=== PATIENT | male | born 1980 | race Hispanic/Latino ===

== ENCOUNTER 2017-11-17 20:36 | Emergency (ER) | payer SELFPAY ==
--- NOTE | 2017-11-17 21:12 | ER ---
Nurse's Notes [facility] Name: Abram Cuellar Age: 37 yrs Sex: Male : 1980 Arrival Date: 11/17/2017 Time: 20:38 Bed 13 Private MD: Diagnosis: Diarrhea, unspecified;Vomiting;Nasal congestion Presentation: 11/17 20:49 Presenting complaint: Patient states: "trouble breathing through my nostril's" X 3 ak1 days. pt denies cough, congestion. pt c/o diarrhea started today. pt stated he vomited once today. Transition of care: patient was not received from another setting of care. Onset of symptoms is unknown. Risk Assessment: Do you want to hurt yourself or someone else? Patient reports no desire to harm self or others. Initial Sepsis Screen: Does the patient meet any 2 criteria? No. Patient's initial sepsis screen is negative. Does the patient have a suspected source of infection? No. Patient's initial sepsis screen is negative. Care prior to arrival: None. 20:49 Method Of Arrival: Ambulatory ak1 20:49 Acuity: DUYEN 3 ak1 Triage Assessment: 20:51 General: Appears in no apparent distress. Behavior is calm, cooperative. Pain: Denies ak1 pain. EENT:. EENT: Reports nasal congestion. Neuro: Level of Consciousness is awake, alert, obeys commands, Oriented to person, place, time, situation, Finance Clerk are equal bilaterally Moves all extremities. Gait is steady, Speech is normal, Facial symmetry appears normal, Pupils are PERRLA. Cardiovascular: No deficits noted. Respiratory: No deficits noted. GI: Reports diarrhea, vomiting. : No signs and/or symptoms were reported regarding the genitourinary system. Derm: No signs and/or symptoms reported regarding the dermatologic system. Musculoskeletal: No signs and/or symptoms reported regarding the musculoskeletal system. Historical: - Allergies: 20:51 No Known Allergies; ak1 - Home Meds: 20:51 None [Active]; ak1 - PMHx: 20:51 None; ak1 - PSHx: 20:51 Appendectomy; Hernia repair; ak1 - Immunization history:: Adult Immunizations unknown. - Social history:: Smoking status: Patient uses tobacco products, smokes one-half pack cigarettes per day. - Ebola Screening: : No symptoms or risks identified at this time. Screenin:52 Abuse screen: Denies threats or abuse. Denies injuries from another. Nutritional ak1 screening: No deficits noted. Tuberculosis screening: No symptoms or risk factors identified. Fall Risk None identified. Assessment: 21:13 General: Appears in no apparent distress. uncomfortable, Behavior is calm, cooperative, bs1 appropriate for age. Pain: Denies pain. Neuro: Level of Consciousness is awake, alert, obeys commands, Oriented to person, place, time, situation, Appropriate for age. Cardiovascular: Denies chest pain, Heart tones S1 S2 present Capillary refill < 3 seconds Patient's skin is warm and dry. Respiratory: Airway is patent Trachea midline Respiratory effort is even, unlabored, Respiratory pattern is regular, symmetrical, Breath sounds are clear bilaterally. Respiratory: Reports "Hard to take a deep breath.". GI: No signs and/or symptoms were reported involving the gastrointestinal system. : No signs and/or symptoms were reported regarding the genitourinary system. EENT: Nares on right inflammation noted to right nare. Derm: Skin is intact, Skin is pink, warm \\T\\ dry. normal. Musculoskeletal: Circulation, motion, and sensation intact. Capillary refill < 3 seconds, Range of motion: intact in all extremities. Vital Signs: 20:50 BP 152 / 96; Pulse 71; Resp 20; Temp 98.1; Pulse Ox 99% on R/A; Weight 90.72 kg (R); ak1 Height 5 ft. 8 in. (172.72 cm) (R); Pain 0/10; 21:20 BP 131 / 85; Pulse 87; Resp 16; Temp 98; Pulse Ox 100% on R/A; Pain 0/10; bs1 20:50 Body Mass Index 30.41 (90.72 kg, 172.72 cm) ak1 ED Course: 20:38 Patient arrived in ED. es 20:50 Triage completed. ak1 20:52 Patient has correct armband on for positive identification. Bed in low position. Call ak1 light in reach. Side rails up X 1. 20:52 Arm band placed on Patient placed in an exam room, on a stretcher, Patient notified of ak1 wait time. 20:58 Ja Connolly NP is PHCP. pm1 20:58 Josef Bingham MD is Attending Physician. pm1 21:12 Mariaelena Wakefield, RN is Primary Nurse. bs1 21:14 No provider procedures requiring assistance completed. Patient did not have IV access bs1 during this emergency room visit. Administered Medications: No medications were administered Outcome: 21:11 Discharge ordered by . pm1 21:27 Discharged to home ambulatory. bs1 21:27 Condition: stable 21:27 Discharge instructions given to patient, Instructed on discharge instructions, follow up and referral plans. medication usage, Demonstrated understanding of instructions, follow-up care, medications, Prescriptions given X 2. 21:28 Patient left the ED. bs1 Signatures: Marli Tilley Amber RN RN ak1 Ja Connolly, ALETHA BOBBIN HAULER pm1 Mariaelena Wakefield, COREY RN bs1
--- NOTE | 2017-11-17 21:12 | EDPHYS ---
Physician Documentation [facility] Name: Abram Cuellar Age: 37 yrs Sex: Male : 1980 Arrival Date: 11/17/2017 Time: 20:38 Bed 13 Private MD: ED Physician Josef Bingham HPI: 11/17 21:10 This 37 yrs old Male presents to ER via Ambulatory with complaints of pm1 Breathing Difficulty from right nostril. 21:10 The patient presents with unable to breath easily from right nostril. Onset: The pm1 symptoms/episode began/occurred 3 day(s) ago. Modifying factors: The symptoms are alleviated by nothing. the symptoms are aggravated by nothing. Associated signs and symptoms: Pertinent positives: anxiety over inability to breath from right nostril. Severity of symptoms: in the emergency department the symptoms are unchanged. The patient has not experienced similar symptoms in the past. Patient went to [facility] for lunch and 1 hour after eating he had 1 episode of diarrhea and 1 episode of vomiting. No fever or abdominal pain. Historical: - Allergies: 20:51 No Known Allergies; ak1 - Home Meds: 20:51 None [Active]; ak1 - PMHx: 20:51 None; ak1 - PSHx: 20:51 Appendectomy; Hernia repair; ak1 - Immunization history:: Adult Immunizations unknown. - Social history:: Smoking status: Patient uses tobacco products, smokes one-half pack cigarettes per day. - Ebola Screening: : No symptoms or risks identified at this time. ROS: 21:10 Constitutional: Negative for fever, chills, and weight loss, Eyes: Negative for injury, pm1 pain, redness, and discharge. 21:10 Neck: Negative for injury, pain, and swelling, Cardiovascular: Negative for chest pain, palpitations, and edema, Respiratory: Negative for shortness of breath, cough, wheezing, and pleuritic chest pain. 21:10 Back: Negative for injury and pain, : Negative for injury, bleeding, discharge, and swelling, MS/Extremity: Negative for injury and deformity, Skin: Negative for injury, rash, and discoloration, Neuro: Negative for headache, weakness, numbness, tingling, and seizure. 21:10 ENT: Positive for difficulty breathing through right nostril , Negative for ear pain, sinus congestion, sinus pain, sore throat. 21:10 Abdomen/GI: Positive for vomiting, diarrhea, Negative for abdominal pain. Exam: 21:10 Constitutional: This is a well developed, well nourished patient who is awake, alert, pm1 and in no acute distress. Head/Face: Normocephalic, atraumatic. Eyes: Pupils equal round and reactive to light, extra-ocular motions intact. Lids and lashes normal. Conjunctiva and sclera are non-icteric and not injected. Cornea within normal limits. Periorbital areas with no swelling, redness, or edema. 21:10 Neck: Trachea midline, no thyromegaly or masses palpated, and no cervical lymphadenopathy. Supple, full range of motion without nuchal rigidity, or vertebral point tenderness. No Meningismus. Chest/axilla: Normal chest wall appearance and motion. Nontender with no deformity. No lesions are appreciated. Cardiovascular: Regular rate and rhythm with a normal S1 and S2. No gallops, murmurs, or rubs. Normal PMI, no JVD. No pulse deficits. Respiratory: Lungs have equal breath sounds bilaterally, clear to auscultation and percussion. No rales, rhonchi or wheezes noted. No increased work of breathing, no retractions or nasal flaring. Abdomen/GI: Soft, non-tender, with normal bowel sounds. No distension or tympany. No guarding or rebound. No evidence of tenderness throughout. Back: No spinal tenderness. No costovertebral tenderness. Full range of motion. Skin: Warm, dry with normal turgor. Normal color with no rashes, no lesions, and no evidence of cellulitis. MS/ Extremity: Pulses equal, no cyanosis. Neurovascular intact. Full, normal range of motion. 21:10 ENT: External ear(s): are unremarkable, Ear canal(s): are normal, TM's: are normal, Nose: Nasal mucosa: Edematous right nostril, Examination of the other nostril shows no obvious abnormality, Mouth: is normal, Posterior pharynx: is normal, no acute changes. 21:10 Neuro: Orientation: is normal, Motor: moves all fours. Vital Signs: 20:50 BP 152 / 96; Pulse 71; Resp 20; Temp 98.1; Pulse Ox 99% on R/A; Weight 90.72 kg (R); ak1 Height 5 ft. 8 in. (172.72 cm) (R); Pain 0/10; 21:20 BP 131 / 85; Pulse 87; Resp 16; Temp 98; Pulse Ox 100% on R/A; Pain 0/10; bs1 20:50 Body Mass Index 30.41 (90.72 kg, 172.72 cm) ak1 MDM: 20:58 Patient medically screened. pm1 21:10 Data reviewed: vital signs. Data interpreted: Pulse oximetry: on room air is 99 %. pm1 Interpretation: normal. Counseling: I had a detailed discussion with the patient and/or guardian regarding: the historical points, exam findings, and any diagnostic results supporting the discharge/admit diagnosis, the need for outpatient follow up, to return to the emergency department if symptoms worsen or persist or if there are any questions or concerns that arise at home. Administered Medications: No medications were administered Disposition: 11/18 07:16 Co-signature as Attending Physician, Josef Bingham MD. Disposition: 11/17/17 21:11 Discharged to Home. Impression: Nasal congestion, Diarrhea, unspecified, Vomiting. - Condition is Stable. - Discharge Instructions: Food Choices to Help Relieve Diarrhea, Adult, Diarrhea, Adult, Food Poisoning, Nasal Allergies, Nausea and Vomiting, Adult. - Prescriptions for Flonase Allergy Relief 50 mcg/actuation Nasal spray,suspension - inhale 2 spray by INTRANASAL route once daily; 1 bottle. promethazine 25 mg Oral Tablet - take 1 tablet by ORAL route every 6 hours As needed; 20 tablet. - Medication Reconciliation Form, Thank You Letter form. - Follow up: Emergency Department; When: As needed; Reason: Worsening of condition. Follow up: Private Physician; When: 2 - 3 days; Reason: Recheck today's complaints, Continuance of care, Re-evaluation by your physician. - Problem is new. - Symptoms have improved. Signatures: Lissett Donis, RN RN ak1 Ja Connolly, ADVANCED MANUFACTURING CONSULTANT ADVANCED MANUFACTURING CONSULTANT pm1 Josef Bingham MD MD Mariaelena Wakefield RN RN bs1 Corrections: (The following items were deleted from the chart) 11/17 21:28 21:11 11/17/2017 21:11 Discharged to Home. Impression: Nasal congestionDiarrhea, bs1 unspecified; Vomiting. Condition is Stable. Forms are Medication Reconciliation Form, Thank You Letter, Antibiotic Education, Prescription Opioid Use. Follow up: Emergency Department; When: As needed; Reason: Worsening of condition. Follow up: Private Physician; When: 2 - 3 days; Reason: Recheck today's complaints, Continuance of care, Re-evaluation by your physician. Problem is new. Symptoms have improved. pm1
[2017-11-17 21:38] VITALS: BP 131/85; TEMP 98; O2SAT 100
== END 2017-11-17 21:28 | disposition home or self-care (01) ==
LOC: ER 20:36
DX: R09.81 Nasal congestion (principal); R19.7 Diarrhea, unspecified; R11.10 Vomiting, unspecified
CPT/HCPCS: 99282

== ENCOUNTER 2017-11-19 15:46 | Emergency (ER) | payer SELFPAY ==
--- NOTE | 2017-11-19 17:00 | ER ---
Nurse's Notes [facility] Name: Abram Cuellar Age: 37 yrs Sex: Male : 1980 Arrival Date: 11/19/2017 Time: 15:49 Bed Waiting Private MD: None, None Diagnosis: Presentation: 11/19 15:50 Presenting complaint: Patient states: was seen here a few days ago and was sent home sv with new prescriptions and he wants to know if he is supposed to keep taking the nausea medicine all the time or as needed. He also wants to follow up on his nostrils and his diarrhea. Transition of care: patient was not received from another setting of care. Onset of symptoms is unknown. Care prior to arrival: None. 15:50 Method Of Arrival: Ambulatory sv 15:50 Acuity: DUYEN 4 sv Historical: - Allergies: 15:52 No Known Allergies; sv - PSHx: 15:52 Appendectomy; Hernia repair; sv - Immunization history:: Adult Immunizations up to date. - Social history:: Smoking status: Patient/guardian denies using tobacco. - Ebola Screening: : No symptoms or risks identified at this time. Vital Signs: 15:52 BP 146 / 104; Pulse 60; Resp 16; Temp 97.4; Pulse Ox 98% ; Weight 95.25 kg; Height 5 sv ft. 8 in. (172.72 cm); Pain 0/10; 15:52 Body Mass Index 31.93 (95.25 kg, 172.72 cm) sv ED Course: 15:49 Patient arrived in ED. mr 15:49 None, None is Private Physician. mr 15:52 Triage completed. sv 15:53 Arm band placed on right wrist. sv Administered Medications: No medications were administered Outcome: 16:59 Patient left the ED. sv Signatures: Elyssa Mcconnell RN RN Hailee Baker Corrections: (The following items were deleted from the chart) 15:53 15:52 BP 146 / 104; Pulse 60bpm; Resp 16bpm; Pulse Ox 98%; 95.25 kg; Height 5 ft. 8 sv in.; BMI: 31.9; Pain 0/10; sv
[2017-11-19 17:06] VITALS: BP 146/104; TEMP 97.4; O2SAT 98
== END 2017-11-19 16:59 | disposition left against medical advice (07) ==
LOC: ER 15:46
DX: Z53.21 Procedure and treatment not carried out due to patient leaving prior to being seen by health care provider (principal)
CPT/HCPCS: 99281

== ENCOUNTER 2017-11-27 16:40 | Emergency (ER) | payer SELFPAY ==
--- NOTE | 2017-11-27 18:35 | ER ---
Nurse's Notes [facility] Name: Abram Cuellar Age: 37 yrs Sex: Male : 1980 Arrival Date: 11/27/2017 Time: 16:44 Bed 20 Private MD: None, None Diagnosis: Diarrhea, unspecified;Nasal congestion Presentation: 11/27 16:51 Presenting complaint: Patient states: nasal congestion and isn't able to breathe sv properly. Diarrhea x 6 times today. Transition of care: patient was not received from another setting of care. Onset of symptoms was November 27, 2017. Care prior to arrival: None. 16:51 Method Of Arrival: Ambulatory sv 16:51 Acuity: DUYEN 3 sv 19:02 Risk Assessment: Do you want to hurt yourself or someone else? Patient reports no aj1 desire to harm self or others. Initial Sepsis Screen: Does the patient meet any 2 criteria? No. Patient's initial sepsis screen is negative. Does the patient have a suspected source of infection? No. Patient's initial sepsis screen is negative. Historical: - Allergies: 16:52 No Known Allergies; sv - Home Meds: 16:52 None [Active]; sv - PSHx: 16:52 Appendectomy; Hernia repair; sv - Immunization history:: Adult Immunizations up to date. - Social history:: Smoking status: Patient/guardian denies using tobacco. - Ebola Screening: : No symptoms or risks identified at this time. Screenin:08 Abuse screen: Denies threats or abuse. Denies injuries from another. Nutritional aj1 screening: No deficits noted. Tuberculosis screening: No symptoms or risk factors identified. 19:03 Fall Risk None identified. aj1 Assessment: 18:08 General: Appears in no apparent distress. comfortable, Behavior is calm, cooperative, aj1 appropriate for age. Pain: Denies pain. Neuro: Level of Consciousness is awake, alert, obeys commands, Oriented to person, place, time, situation. Cardiovascular: Patient's skin is warm and dry. Respiratory: Airway is patent Respiratory effort is even, unlabored, Respiratory pattern is regular, symmetrical. GI: Abdomen is flat, non-distended, Reports diarrhea, nausea. : No signs and/or symptoms were reported regarding the genitourinary system. EENT: Reports nasal congestion in the right nostril. Derm: No signs and/or symptoms reported regarding the dermatologic system. Skin is pink, warm \T\ dry. normal. Musculoskeletal: No signs and/or symptoms reported regarding the musculoskeletal system. Circulation, motion, and sensation intact. 19:01 Reassessment: Patient appears in no apparent distress at this time. No changes from aj1 previously documented assessment. Patient and/or family updated on plan of care and expected duration. Pain level reassessed. Patient is alert, oriented x 3, equal unlabored respirations, skin warm/dry/pink. Vital Signs: 16:52 BP 136 / 93; Pulse 58; Resp 18; Temp 97.4; Pulse Ox 99% ; Weight 94.8 kg; Height 5 ft. sv 8 in. (172.72 cm); Pain 4/10; 16:52 Body Mass Index 31.78 (94.80 kg, 172.72 cm) sv ED Course: 16:44 Patient arrived in ED. sb2 16:44 None, None is Private Physician. sb2 16:52 Triage completed. sv 16:53 Arm band placed on right wrist. sv 17:40 Ania Vinson, RN is Primary Nurse. aj1 17:46 Alexandra Chicas, PEDRO is PHCP. snw 17:46 Jay Selby MD is Attending Physician. snw 18:08 Patient has correct armband on for positive identification. Bed in low position. Call aj1 light in reach. Side rails up X 1. 18:08 No provider procedures requiring assistance completed. aj1 19:02 Patient did not have IV access during this emergency room visit. aj1 Administered Medications: No medications were administered Outcome: 18:35 Discharge ordered by . snw 19:03 Discharged to home ambulatory. aj1 19:03 Condition: good 19:03 Discharge instructions given to patient, Instructed on discharge instructions, follow up and referral plans. Demonstrated understanding of instructions, follow-up care. 19:03 Patient left the ED. aj1 Signatures: Ania Vinson RN RN ajElyssa Marin RN RN sv Alexandra Chicas FNP-C FINAL ARMATURE TESTER-Csnw Tessy Leavitt sb2
--- NOTE | 2017-11-27 18:35 | EDPHYS ---
Physician Documentation [facility] Name: Abram Cuellar Age: 37 yrs Sex: Male : 1980 Arrival Date: 11/27/2017 Time: 16:44 Bed 20 Private MD: None, None ED Physician Jay Selby HPI: 11/27 18:39 This 37 yrs old Male presents to ER via Ambulatory with complaints of snw Diarrhea, Nasal Congestion. 18:39 The patient presents to the emergency department with nausea, diarrhea. Onset: The snw symptoms/episode began/occurred 1 week(s) ago, waxing and waning. Possible causes: dietary changes and recent "food poisoning", pt to ED three times in the past week for the same. The symptoms are aggravated by nothing. Associated signs and symptoms: The patient has no apparent associated signs or symptoms, Pertinent negatives: anorexia, dysuria, fever, GI bleeding. Severity of symptoms: At their worst the symptoms were mild. The patient has experienced similar episodes in the past. as noted. Historical: - Allergies: 16:52 No Known Allergies; sv - Home Meds: 16:52 None [Active]; sv - PSHx: 16:52 Appendectomy; Hernia repair; sv - Immunization history:: Adult Immunizations up to date. - Social history:: Smoking status: Patient/guardian denies using tobacco. - Ebola Screening: : No symptoms or risks identified at this time. ROS: 18:42 Constitutional: Negative for fever, chills, and weight loss, Eyes: Negative for injury, snw pain, redness, and discharge. 18:42 Neck: Negative for injury, pain, and swelling, Cardiovascular: Negative for chest pain, palpitations, and edema, Respiratory: Negative for shortness of breath, cough, wheezing, and pleuritic chest pain, Back: Negative for injury and pain, : Negative for injury, bleeding, discharge, and swelling, MS/Extremity: Negative for injury and deformity, Skin: Negative for injury, rash, and discoloration, Neuro: Negative for headache, weakness, numbness, tingling, and seizure. 18:42 ENT: Positive for right nasal congestion. 18:42 Abdomen/GI: Positive for diarrhea, Negative for abdominal pain, nausea and vomiting, abdominal cramps, abdominal distension, anorexia, black/tarry stool, bowel incontinence. Exam: 18:38 Constitutional: This is a well developed, well nourished patient who is awake, alert, snw and in no acute distress. Head/Face: Normocephalic, atraumatic. Eyes: Pupils equal round and reactive to light, extra-ocular motions intact. Lids and lashes normal. Conjunctiva and sclera are non-icteric and not injected. Cornea within normal limits. Periorbital areas with no swelling, redness, or edema. ENT: Nares patent. No nasal discharge, no septal abnormalities noted. Tympanic membranes are normal and external auditory canals are clear. Oropharynx with no redness, swelling, or masses, exudates, or evidence of obstruction, uvula midline. Mucous membranes moist. Neck: Trachea midline, no thyromegaly or masses palpated, and no cervical lymphadenopathy. Supple, full range of motion without nuchal rigidity, or vertebral point tenderness. No Meningismus. Chest/axilla: Normal chest wall appearance and motion. Nontender with no deformity. No lesions are appreciated. Cardiovascular: Regular rate and rhythm with a normal S1 and S2. No gallops, murmurs, or rubs. Normal PMI, no JVD. No pulse deficits. Respiratory: Lungs have equal breath sounds bilaterally, clear to auscultation and percussion. No rales, rhonchi or wheezes noted. No increased work of breathing, no retractions or nasal flaring. Abdomen/GI: Soft, non-tender, with normal bowel sounds. No distension or tympany. No guarding or rebound. No evidence of tenderness throughout. Back: No spinal tenderness. No costovertebral tenderness. Full range of motion. Skin: Warm, dry with normal turgor. Normal color with no rashes, no lesions, and no evidence of cellulitis. MS/ Extremity: Pulses equal, no cyanosis. Neurovascular intact. Full, normal range of motion. Neuro: Awake and alert, GCS 15, oriented to person, place, time, and situation. Cranial nerves II-XII grossly intact. Motor strength 5/5 in all extremities. Sensory grossly intact. Cerebellar exam normal. Normal gait. 18:38 Psych: Behavior/mood is anxious. Vital Signs: 16:52 BP 136 / 93; Pulse 58; Resp 18; Temp 97.4; Pulse Ox 99% ; Weight 94.8 kg; Height 5 ft. sv 8 in. (172.72 cm); Pain 4/10; 16:52 Body Mass Index 31.78 (94.80 kg, 172.72 cm) sv MDM: 17:46 Patient medically screened. snw 18:41 Data reviewed: vital signs, nurses notes. Data interpreted: Pulse oximetry: on room air snw is 99 %. Interpretation: normal. Counseling: I had a detailed discussion with the patient and/or guardian regarding: the historical points, exam findings, and any diagnostic results supporting the discharge/admit diagnosis, the presence of at least one elevated blood pressure reading (>120/80) during this emergency department visit, the need for outpatient follow up, to return to the emergency department if symptoms worsen or persist or if there are any questions or concerns that arise at home. Special discussion: I have referred the patient to see his PCP for further evaluation of high blood pressure. Based on the history and exam findings, there is no indication for further emergent testing or inpatient evaluation. I discussed with the patient/guardian the need to see the ENT specialist for further evaluation of the symptoms. I discussed with the patient/guardian the need to see the primary care provider for further evaluation of the symptoms. Medical screen evaluation completed. [facility] emergency medical condition absent. Administered Medications: No medications were administered Disposition: 11/28 10:39 Co-signature as Attending Physician, Jay Selby MD I agree with the assessment and kdr plan of care. Disposition: 11/27/17 18:35 Discharged to Home. Impression: Diarrhea, unspecified, Nasal congestion. - Condition is Stable. - Discharge Instructions: Food Choices to Help Relieve Diarrhea, Adult, Diarrhea, Adult, Allergies, [id number]. - Medication Reconciliation Form, Thank You Letter, Antibiotic Education, Prescription Opioid Use form. - Follow up: Emergency Department; When: As needed; Reason: Worsening of condition. Follow up: Private Physician; When: 1 week; Reason: Recheck today's complaints, Continuance of care, Re-evaluation by your physician. Signatures: Ania Vinson RN RN aj1 Elyssa Mcconnell RN RN sv Rittger, Kevin, MD MD [facility] Alexandra Chicas, BIOMEDICAL TECHNICIAN-C BIOMEDICAL TECHNICIAN-Csnw Corrections: (The following items were deleted from the chart) 08/02 19:03 18:35 11/27/2017 18:35 Discharged to Home. Impression: Diarrhea, unspecified; Nasal aj1 congestion. Condition is Stable. Forms are Medication Reconciliation Form, Thank You Letter, Antibiotic Education, Prescription Opioid Use. Follow up: Emergency Department; When: As needed; Reason: Worsening of condition. Follow up: Private Physician; When: 1 week; Reason: Recheck today's complaints, Continuance of care, Re-evaluation by your physician. snw
[2017-11-27 19:07] VITALS: BP 136/93; TEMP 97.4; O2SAT 99
== END 2017-11-27 19:03 | disposition home or self-care (01) ==
LOC: ER 16:40
DX: R19.7 Diarrhea, unspecified (principal); R09.81 Nasal congestion
CPT/HCPCS: 99281

== ENCOUNTER 2017-12-01 14:51 | Emergency (ER) | payer SELFPAY ==
--- NOTE | 2017-12-01 16:27 | RAD REPORT ---
EXAM DESCRIPTION: US - Abdomen Exam Limited - 12/01/2017 4:16 pm CLINICAL HISTORY: RUQ;Abd pain COMPARISON: No comparisons FINDINGS: The gallbladder demonstrates no gallstones. No pericholecystic fluid or gallbladder wall t hickening. The common bile duct is normal measuring 4 mm. The liver demonstrates no findings of intrahepatic biliary dilatation. IMPRESSION: Unremarkable examination.
[2017-12-01 17:07] LABS: Absolute Lymphocytes (CBC) 2.7 K/uL (0.7-4.9); Absolute Monocytes 0.6 K/uL (0.1-1.3); Absolute Neutrophil 2.4 K/uL (1.8-8.0); Basophils % 0.5 % (0-1.3); Eosinophils % 1.2 % (0-4.4); Hematocrit 41.7 % (39.6-49.0); Lymphocytes % 46.1 % (15.3-44.8); MCH 33.2 pg (27.0-35.0); MPV 10.2 fL (7.6-11.3); Monocytes % 10.6 % (3.3-12.3); RBC Red Blood Cell Count 4.35 M/uL (4.33-5.43)
[2017-12-01 17:24] LABS: Potassium 4.1 mmol/L (3.5-5.1)
--- NOTE | 2017-12-01 17:24 | RAD REPORT ---
[facility]: nasal septum swelling Facial pain and swelling. COMPARISON: No comparisons TECHNIQUE: Axial 2 mm thick images of the face were obtained with sagittal and coronal reconstructio n images. All CT scans are performed using dose optimization technique as appropriate and may include automated exposure control or mA/KV adjustment according to patient size. FINDINGS: No acute facial bone fracture is seen.The mandible is intact. The globes and orbital contents are grossly unremarkable. The nasal septum anteriorly is thickened to 8 mm. Prominent right-sided sarai bullosa is seen. 8 mm Felecia cell is noted on the left. A soft tissue le pratik is seen in the right superior maxillary sinus posterior to the maxillary sinus ostium. This vasyl ures 15 x 14 mm and has the appearance of a mucocele, perhaps within a right-sided Felecia cell. Moder ate mass effect on the right ostiomeatal unit is seen. Small 6 mm mucous retention cyst versus polyp is seen inferior left maxillary antrum. IMPRESSION: Moderate diffuse thickening of the nasal septum anteriorly measuring up to 8 mm. Paranasal sinus abnormalities, greater on the right, as detailed.
--- NOTE | 2017-12-01 18:00 | ER ---
Nurse's Notes [facility] Name: Abram Cuellar Age: 37 yrs Sex: Male : 1980 Arrival Date: 12/01/2017 Time: 14:53 Bed 19 Private MD: Diagnosis: Abdominal and pelvic pain;Diarrhea, unspecified;Right anterior nasal spetum swelling Presentation: 12/01 14:54 Presenting complaint: Patient states: right side abd pain and diarrhea since before sv 11/17/17 and nasal congestion and occasional nose bleeds. Transition of care: patient was not received from another setting of care. Onset of symptoms was October 2017. Care prior to arrival: None. 14:54 Method Of Arrival: Ambulatory sv 14:54 Acuity: DUYEN 3 sv Historical: - Allergies: 14:54 No Known Allergies; sv - PSHx: 14:54 Appendectomy; Hernia repair; sv - Immunization history:: Adult Immunizations up to date. - Ebola Screening: : No symptoms or risks identified at this time. - Social history:: Smoking status: Patient/guardian denies using tobacco. Screenin:36 Abuse screen: Denies threats or abuse. Denies injuries from another. Nutritional aj screening: No deficits noted. Tuberculosis screening: No symptoms or risk factors identified. Fall Risk None identified. Assessment: 15:36 General: Appears in no apparent distress. comfortable, Behavior is calm, cooperative, aj appropriate for age. Pain: Complains of pain in right upper quadrant. Neuro: Level of Consciousness is awake, alert, obeys commands, Oriented to person, place, time, situation, Appropriate for age. Respiratory: Airway is patent Respiratory effort is even, unlabored, Respiratory pattern is regular, symmetrical. GI: Reports upper abdominal pain, diarrhea. Derm: Skin is intact, is healthy with good turgor, Skin is pink, warm \T\ dry. normal. 18:19 Reassessment: Patient appears in no apparent distress at this time. No changes from aj previously documented assessment. Patient and/or family updated on plan of care and expected duration. Pain level reassessed. Patient is alert, oriented x 3, equal unlabored respirations, skin warm/dry/pink. Vital Signs: 14:56 BP 124 / 91; Pulse 64; Resp 18; Temp 97.8; Pulse Ox 100% ; Weight 94.8 kg; Height 5 ft. sv 8 in. (172.72 cm); Pain 0/10; 15:36 BP 120 / 92; Pulse 65; Resp 20; Pulse Ox 97% on R/A; aj 16:50 BP 127 / 89; Pulse 66; Resp 17; Pulse Ox 98% on R/A; mh5 17:45 BP 122 / 83; Pulse 58; Resp 17; Pulse Ox 98% on R/A; mh5 14:56 Body Mass Index 31.78 (94.80 kg, 172.72 cm) sv ED Course: 14:53 Patient arrived in ED. sv 14:54 Arm band placed on right wrist. sv 14:54 Patient placed in an exam room, on a stretcher. sv 14:56 Triage completed. sv 14:58 Wen Avelar, RN is Primary Nurse. aj 15:36 Patient has correct armband on for positive identification. aj 15:42 Jay Selby MD is Attending Physician. kdr 16:06 Radiology exam delayed due to lab results not completed at this time. (BUN/Creatinine). jj2 16:07 Patient taken to ultrasound. via wheelchair. hr 16:15 US Abdomen Limited In Process Unspecified. EDMS 16:21 Ultrasound completed. Patient tolerated well. hr 16:34 Radiology exam delayed due to lab results not completed at this time. (BUN/Creatinine) jj2 IV insertion attempt and/or patient not having appropriate IV at this time. 16:49 Missed attempt(s): 20 gauge in right forearm. antecubital area. mh5 16:54 Inserted saline lock: 22 gauge in left antecubital area, using aseptic technique. Blood aj collected. 17:11 CT Facial Bones W/ Con \T\ Mpr In Process Unspecified. EDMS 18:21 No provider procedures requiring assistance completed. IV discontinued, intact, aj bleeding controlled, No redness/swelling at site. Pressure dressing applied. Administered Medications: 18:07 Drug: Flagyl 500 mg Route: PO; aj 18:25 Follow up: Response: No adverse reaction aj 18:07 Drug: Cipro 500 mg Route: PO; aj 18:24 Follow up: Response: No adverse reaction aj 18:07 Drug: Bentyl 20 mg Route: PO; aj 18:24 Follow up: Response: No adverse reaction aj 18:08 Drug: LoMOTIL 2 tabs Route: PO; aj 18:25 Follow up: Response: No adverse reaction aj Outcome: 17:59 Discharge ordered by . kdr 18:21 Discharged to home ambulatory. aj 18:21 Condition: good 18:21 Discharge instructions given to patient, Instructed on discharge instructions, follow up and referral plans. Demonstrated understanding of instructions, follow-up care, medications, Prescriptions given X 5 18:25 Patient left the ED. aj Signatures: Dispatcher [employer] Elyssa Hobson RN RN sv Myers, Amanda, RN RN aj Rittger, Kevin, MD MD kdr Jaramillo, Justin jj2 Greta Parker [facility] Corrections: (The following items were deleted from the chart) 14:58 14:54 Presenting complaint: Patient states: diarrhea since before 11/17/17 and nasal sv congestion and occasional nose bleeds. sv 16:34 16:21 Patient moved to [place] via wheelchair. hr jj2
--- NOTE | 2017-12-01 18:00 | EDPHYS ---
Physician Documentation [facility] Name: Abram Cuellar Age: 37 yrs Sex: Male : 1980 Arrival Date: 12/01/2017 Time: 14:53 Bed 19 Private MD: ED Physician Jay Selby HPI: 12/01 17:50 This 37 yrs old Male presents to ER via Ambulatory with complaints of kdr Diarrhea, RUQ pain and nasal septum pain. 17:50 The patient presents to the emergency department with nausea, diarrhea, that is kdr intermittent, abdominal pain, of the right upper quadrant. Onset: The symptoms/episode began/occurred gradually, 3 week(s) ago. Possible causes: unknown, bad food exposure. The symptoms are aggravated by nothing. pressure, The symptoms are alleviated by nothing. Associated signs and symptoms: Pertinent positives: abdominal pain, diarrhea, nausea, Pertinent negatives: anorexia, belching, constipation, dysuria, fever, flatulence. Severity of symptoms: At their worst the symptoms were mild in the emergency department the symptoms are unchanged. The patient has not experienced similar symptoms in the past. The patient has been recently seen at the [facility] Emergency Department, last week, for similar complaints. Historical: - Allergies: 14:54 No Known Allergies; sv - PSHx: 14:54 Appendectomy; Hernia repair; sv - Immunization history:: Adult Immunizations up to date. - Ebola Screening: : No symptoms or risks identified at this time. - Social history:: Smoking status: Patient/guardian denies using tobacco. ROS: 17:50 Constitutional: Negative for fever, chills, and weight loss, Eyes: Negative for injury, kdr pain, redness, and discharge, Neck: Negative for injury, pain, and swelling, Cardiovascular: Negative for chest pain, palpitations, and edema, Respiratory: Negative for shortness of breath, cough, wheezing, and pleuritic chest pain, Back: Negative for injury and pain, : Negative for injury, bleeding, discharge, and swelling, MS/Extremity: Negative for injury and deformity, Skin: Negative for injury, rash, and discoloration, Neuro: Negative for headache, weakness, numbness, tingling, and seizure activity. Psych: Negative for depression, anxiety, suicide ideation, homicidal ideation, and hallucinations, Allergy/Immunology: Negative for hives, rash, and allergies, Endocrine: Negative for neck swelling, polydipsia, polyuria, polyphagia, and marked weight changes, Hematologic/Lymphatic: Negative for swollen nodes, abnormal bleeding, and unusual bruising. 17:50 ENT: Positive for Anterior right nasal septum pain, Negative for 17:50 Abdomen/GI: Positive for abdominal pain, nausea, diarrhea, abdominal cramps, Negative for abdominal distension, anorexia, dysphagia, hematemesis, black/tarry stool, rectal pain, rectal bleeding, bowel incontinence, flatulence. Exam: 17:50 Constitutional: This is a well developed, well nourished patient who is awake, alert, kdr and in no acute distress. Head/Face: Normocephalic, atraumatic. Eyes: Pupils equal round and reactive to light, extra-ocular motions intact. Lids and lashes normal. Conjunctiva and sclera are non-icteric and not injected. Cornea within normal limits. Periorbital areas with no swelling, redness, or edema. Neck: Trachea midline, no thyromegaly or masses palpated, and no cervical lymphadenopathy. Supple, full range of motion without nuchal rigidity, or vertebral point tenderness. No Meningismus. Chest/axilla: Normal chest wall appearance and motion. Nontender with no deformity. No lesions are appreciated. Cardiovascular: Regular rate and rhythm with a normal S1 and S2. No gallops, murmurs, or rubs. Normal PMI, no JVD. No pulse deficits. Respiratory: Lungs have equal breath sounds bilaterally, clear to auscultation and percussion. No rales, rhonchi or wheezes noted. No increased work of breathing, no retractions or nasal flaring. Back: No spinal tenderness. No costovertebral tenderness. Full range of motion. Skin: Warm, dry with normal turgor. Normal color with no rashes, no lesions, and no evidence of cellulitis. 17:50 ENT: Nose: Slight swelling to right anterior nasal spetum. 17:50 Abdomen/GI: Inspection: abdomen appears normal, Bowel sounds: active, Palpation: soft, mild abdominal tenderness, in the right upper quadrant. Vital Signs: 14:56 BP 124 / 91; Pulse 64; Resp 18; Temp 97.8; Pulse Ox 100% ; Weight 94.8 kg; Height 5 ft. sv 8 in. (172.72 cm); Pain 0/10; 15:36 BP 120 / 92; Pulse 65; Resp 20; Pulse Ox 97% on R/A; aj 16:50 BP 127 / 89; Pulse 66; Resp 17; Pulse Ox 98% on R/A; mh5 17:45 BP 122 / 83; Pulse 58; Resp 17; Pulse Ox 98% on R/A; mh5 14:56 Body Mass Index 31.78 (94.80 kg, 172.72 cm) sv MDM: 17:50 Data reviewed: vital signs, nurses notes. Counseling: I had a detailed discussion with [facility] the patient and/or guardian regarding: the historical points, exam findings, and any diagnostic results supporting the discharge/admit diagnosis, lab results, radiology results, the need for outpatient follow up. 17:59 Patient medically screened. [facility] 12/01 16:03 Order name: CBC with Diff; Complete Time: 17:19 [facility] 12/01 16:03 Order name: Chem 7; Complete Time: 17:44 [facility] 12/01 16:03 Order name: US Abdomen Limited; Complete Time: 17:19 [facility] 12/01 16:03 Order name: CT Facial Bones W/ Con \T\ Mpr; Complete Time: 17:44 [facility] Administered Medications: 18:07 Drug: Flagyl 500 mg Route: PO; aj 18:25 Follow up: Response: No adverse reaction aj 18:07 Drug: Cipro 500 mg Route: PO; aj 18:24 Follow up: Response: No adverse reaction aj 18:07 Drug: Bentyl 20 mg Route: PO; aj 18:24 Follow up: Response: No adverse reaction aj 18:08 Drug: LoMOTIL 2 tabs Route: PO; aj 18:25 Follow up: Response: No adverse reaction Disposition: 12/01/17 17:59 Discharged to Home. Impression: Abdominal and pelvic pain, Diarrhea, unspecified, Right anterior nasal spetum swelling. - Condition is Stable. - Discharge Instructions: Abdominal Pain, Adult, [id number], Diarrhea, Adult, [id number]. - Prescriptions for Bentyl 20 mg Oral Tablet - take 1 tablet by ORAL route every 6 hours As needed; 20 tablet. Cipro 500 mg Oral Tablet - take 1 tablet by ORAL route every 12 hours for 10 days; 20 tablet. Flagyl 500 mg Oral Tablet - take 1 tablet by ORAL route every 6 hours for 10 days; 40 tablet. Zofran 4 mg Oral Tablet - take 1 tablet by ORAL route every 12 hours As needed; 6 tablet. Lomotil 2.5- 0.025 mg Oral Tablet - take 1 tablet by ORAL route every 6 hours As needed; 20 tablet. - Medication Reconciliation Form, Thank You Letter, Antibiotic Education form. - Follow up: Private Physician; When: 2 - 3 days; Reason: If symptoms return, Further diagnostic work-up, Recheck today's complaints, Continuance of care, Re-evaluation by your physician. - Problem is an ongoing problem. - Symptoms have improved. Signatures: Dispatcher [employer] EDElyssa Burnham RN RN Wen Tovar RN RN aj Rittger, Kevin, MD MD kdr Corrections: (The following items were deleted from the chart) 18:25 17:59 12/01/2017 17:59 Discharged to Home. Impression: Abdominal and pelvic pain; aj Diarrhea, unspecified; Right anterior nasal spetum swelling. Condition is Stable. Forms are Medication Reconciliation Form, Thank You Letter, Antibiotic Education, Prescription Opioid Use. Follow up: Private Physician; When: 2 - 3 days; Reason: If symptoms return, Further diagnostic work-up, Recheck today's complaints, Continuance of care, Re-evaluation by your physician. Problem is an ongoing problem. Symptoms have improved. kdr
[2017-12-01] MEDS ORDERED: metroNIDAZOLE 500 MG TABLET ONE (18:04)
[2017-12-01] MEDS ORDERED: CIPROFLOXACIN HCL 500 MG TAB ONE (18:04)
[2017-12-01] MEDS ORDERED: DICYCLOMINE HCL 10 MG CAP ONE (18:05)
[2017-12-01] MEDS ORDERED: DIPHENOX/ATROP SULF 1 TAB PO ONE (18:05)
[2017-12-01 18:29] VITALS: TEMP 97.8
[2017-12-01 18:31] VITALS: O2SAT 98
[2017-12-01 18:32] VITALS: BP 122/83
== END 2017-12-01 18:25 | disposition home or self-care (01) ==
LOC: ER 14:51
DX: R10.9 Unspecified abdominal pain (principal); R10.2 Pelvic and perineal pain; R19.7 Diarrhea, unspecified; R22.0 Localized swelling, mass and lump, head
CPT/HCPCS: 36415; 70487; 76377; 76705; 80048; 85025; 99284; Q9967

== ENCOUNTER 2017-12-16 07:38 | Emergency (ER) | payer SELFPAY ==
--- NOTE | 2017-12-16 08:27 | ER ---
Nurse's Notes [facility] Name: Abram Cuellar Age: 37 yrs Sex: Male : 1980 Arrival Date: 12/16/2017 Time: 07:40 Bed 5 Private MD: None, None Diagnosis: Tinea corporis Presentation: 12/16 07:43 Presenting complaint: Patient states: Seen in ER recently for abd pain, diarrhea given ss Zofran, promethazine, Cipro and Flagyl. Pt reports at work, he works outside in [employer] clothing and states he was sweating and he has a small area of concern (possible rash) to R lower abd. Transition of care: patient was not received from another setting of care. Onset of symptoms is unknown. Risk Assessment: Do you want to hurt yourself or someone else? Patient reports no desire to harm self or others. Initial Sepsis Screen: Does the patient meet any 2 criteria? No. Patient's initial sepsis screen is negative. Does the patient have a suspected source of infection? No. Patient's initial sepsis screen is negative. Note Pt reports he is supposed to follow up with PCP and ENT, but has not because he does not have insurance. Care prior to arrival: None. 07:43 Method Of Arrival: Ambulatory ss 07:43 Acuity: DUYEN 4 ss Historical: - Allergies: 07:57 No Known Allergies; ss - Home Meds: 07:57 Zofran (as hydrochloride) 4 mg Oral tab [Active]; Promethazine Oral [Active]; ss Dicyclomine Oral [Active]; Cipro Oral [Active]; Flagyl Oral [Active]; - PMHx: 07:57 None; ss - PSHx: 07:57 Appendectomy; Hernia repair; ss - Immunization history:: Adult Immunizations up to date. - Social history:: Smoking status: Patient/guardian denies using tobacco, the patient reports quitting approximately .15 years ago. - Ebola Screening: : Patient denies exposure to infectious person Patient denies travel to an Ebola-affected area in the 21 days before illness onset. Screenin:01 Abuse screen: Denies threats or abuse. Denies injuries from another. Nutritional ph screening: No deficits noted. Tuberculosis screening: No symptoms or risk factors identified. Fall Risk None identified. Assessment: 08:00 General: Appears in no apparent distress. comfortable, Behavior is calm, cooperative, ph appropriate for age, Denies fever, feeling ill. Pain: Denies pain. Neuro: Level of Consciousness is awake, alert, obeys commands, Oriented to person, place, time, situation. Cardiovascular: Capillary refill < 3 seconds in bilateral fingers Patient's skin is warm and dry. Respiratory: Airway is patent Respiratory effort is even, unlabored, Denies shortness of breath. GI: No signs and/or symptoms were reported involving the gastrointestinal system. Derm: Skin is intact, is healthy with good turgor, Skin is pink, warm \T\ dry. Rash noted that is macular, red, on right lower quadrant. Musculoskeletal: Circulation, motion, and sensation intact. Range of motion: intact in all extremities. Vital Signs: 07:57 BP 130 / 94; Pulse 60; Resp 16; Temp 97.0(TE); Pulse Ox 100% on R/A; Height 5 ft. 8 in. ss (172.72 cm); Pain 0/10; 08:44 BP 127 / 87; Pulse 62; Resp 18; Temp 97.1; Pulse Ox 99% on R/A; ss ED Course: 07:40 Patient arrived in ED. sb2 07:40 None, None is Private Physician. sb2 07:55 Triage completed. 07:57 [facility] cp 07:57 Marco A Riley MD is Attending Physician. cp 07:57 Arm band placed on right wrist. 08:00 Sandi Garcia RN is Primary Nurse. ph 08:03 Patient has correct armband on for positive identification. Bed in low position. Call light in reach. Side rails up X 1. Pulse ox on. 08:05 No provider procedures requiring assistance completed. ph 08:44 Patient did not have IV access during this emergency room visit. Administered Medications: No medications were administered Outcome: 08:26 Discharge ordered by . 08:44 Discharged to home ambulatory. 08:44 Condition: good 08:44 Discharge instructions given to patient, Instructed on discharge instructions, follow up and referral plans. medication usage, Demonstrated understanding of instructions, follow-up care, medications, Prescriptions given X 1. 08:44 Patient left the ED. Signatures: Carlotta Thompson RN RN Sandi Garcia RN RN ph Angel Hilliard PA PA cp Tree, Tessy sb2
--- NOTE | 2017-12-16 08:27 | EDPHYS ---
Physician Documentation [facility] Name: Abram Cuellar Age: 37 yrs Sex: Male : 1980 Arrival Date: 12/16/2017 Time: 07:40 Bed 5 Private MD: None, None ED Physician Marco A Riley HPI: 12/16 08:20 This 37 yrs old Male presents to ER via Ambulatory with complaints of Rash. cp 08:20 The patient's rash thought to be caused by an unknown cause. The rash is located on the cp lower abdomen above beltline. The rash can be described as erythematous, with scale. Onset: The symptoms/episode began/occurred 1 week(s) ago. Associated signs and symptoms: Pertinent negatives: fever. Severity of symptoms: in the emergency department the symptoms are unchanged despite home interventions. Treatment given at home: OTC lotion/cream. Historical: - Allergies: 07:57 No Known Allergies; ss - Home Meds: 07:57 Zofran (as hydrochloride) 4 mg Oral tab [Active]; Promethazine Oral [Active]; ss Dicyclomine Oral [Active]; Cipro Oral [Active]; Flagyl Oral [Active]; - PMHx: 07:57 None; ss - PSHx: 07:57 Appendectomy; Hernia repair; ss - Immunization history:: Adult Immunizations up to date. - Social history:: Smoking status: Patient/guardian denies using tobacco, the patient reports quitting approximately .15 years ago. - Ebola Screening: : Patient denies exposure to infectious person Patient denies travel to an Ebola-affected area in the 21 days before illness onset. ROS: 08:22 Eyes: Negative for injury, pain, redness, and discharge. cp 08:22 Constitutional: Negative for body aches, chills, fever, poor PO intake. 08:22 ENT: Negative for drainage from ear(s), ear pain, sore throat, difficulty swallowing, difficulty handling secretions. 08:22 Cardiovascular: Negative for chest pain. 08:22 Respiratory: Negative for cough, shortness of breath, wheezing. 08:22 Abdomen/GI: Negative for abdominal pain. 08:22 Skin: Positive for rash, of the lower abdomen above beltline, Negative for cellulitis. 08:22 All other systems are negative. Exam: 08:24 Head/Face: Normocephalic, atraumatic. cp 08:24 Constitutional: The patient appears in no acute distress, alert, awake, non-toxic, well developed, well nourished. 08:24 Eyes: Periorbital structures: appear normal, Conjunctiva: normal, no exudate, no injection, Lids and lashes: appear normal, bilaterally. 08:24 ENT: External ear(s): are unremarkable, Nose: is normal, Mouth: Lips: moist, Oral mucosa: moist, Posterior pharynx: is normal, airway is patent. 08:24 Cardiovascular: Rate: normal. 08:24 Respiratory: the patient does not display signs of respiratory distress, Respirations: normal, no use of accessory muscles, no retractions, no splinting, no tachypnea. 08:24 Skin: consistent with ringworm, on the lower abdomen above beltline. Vital Signs: 07:57 BP 130 / 94; Pulse 60; Resp 16; Temp 97.0(TE); Pulse Ox 100% on R/A; Height 5 ft. 8 in. ss (172.72 cm); Pain 0/10; 08:44 BP 127 / 87; Pulse 62; Resp 18; Temp 97.1; Pulse Ox 99% on R/A; ss MDM: 07:57 Patient medically screened. cp 08:00 Differential diagnosis: impetigo, varicella, allergic reaction, tinea, psoriasis. cp 08:25 Data reviewed: vital signs, nurses notes, and as a result, I will discharge patient. cp 08:25 Counseling: I had a detailed discussion with the patient and/or guardian regarding: the cp historical points, exam findings, and any diagnostic results supporting the discharge/admit diagnosis, to return to the emergency department if symptoms worsen or persist or if there are any questions or concerns that arise at home. Administered Medications: No medications were administered Disposition: 12/17 02:39 Co-signature as Attending Physician, Marco A Riley MD I agree with the assessment and 4 plan of care. Attestation: The patient's history, exam findings, diagnostics, and a summary of any interventions or procedures was reviewed in detail with Angel JAMES. Disposition: 12/16/17 08:26 Discharged to Home. Impression: Tinea corporis. - Condition is Stable. - Discharge Instructions: Body Ringworm. - Prescriptions for Clotrimazole 1 % Topical Cream - Apply to affected area 1 application by TOPICAL route every 12 hours; 15 gram. - Work release form, Medication Reconciliation Form, Thank You Letter, Antibiotic Education, Prescription Opioid Use form. - Follow up: Private Physician; When: 5 - 6 days; Reason: if rash persists. - Problem is new. - Symptoms are unchanged. Signatures: Carlotta Thompson RN RN ss Angel Hilliard PA PA cp Wadley, Terrence, MD MD tw4 Corrections: (The following items were deleted from the chart) 12/16 08:44 08:26 12/16/2017 08:26 Discharged to Home. Impression: Tinea corporis. Condition is ss Stable. Forms are Medication Reconciliation Form, Thank You Letter, Antibiotic Education, Prescription Opioid Use. Follow up: Private Physician; When: 5 - 6 days; Reason: if rash persists. Problem is new. Symptoms are unchanged. cp
[2017-12-16 08:54] VITALS: BP 127/87; TEMP 97.1; O2SAT 99
== END 2017-12-16 08:44 | disposition home or self-care (01) ==
LOC: ER 07:38
DX: B35.4 Tinea corporis (principal)
CPT/HCPCS: 99283

== ENCOUNTER 2018-12-18 14:46 | Emergency (ER) | payer SELFPAY ==
[2018-12-18 16:27] LABS: Absolute Lymphocytes (CBC) 3.1 K/uL (0.7-4.9); Basophils % 0.4 % (0-1.3); Hematocrit 34.3 % (39.6-49.0); Lymphocytes % 43.4 % (15.3-44.8); MPV 10.3 fL (7.6-11.3); RBC Red Blood Cell Count 3.47 M/uL (4.33-5.43)
[2018-12-18 16:31] LABS: Protime INR 0.94
--- NOTE | 2018-12-18 16:40 | RAD REPORT ---
EXAM DESCRIPTION: RAD - Chest Single View - 12/18/2018 4:19 pm CLINICAL HISTORY: Leg pain and swelling, shortness of breath COMPARISON: July 2016 TECHNIQUE: AP portable chest image was obtained 1614 hours . FINDINGS: Lung volumes are low. Lung markings match comparison. No pulmonary edema, infiltrate or ma ss. Heart and vasculature are normal. No measurable pleural effusion and no pneumothorax. No acute [place]ess[place] abnormality seen. No acute aortic findings suspected. IMPRESSION: No acute cardiopulmonary process. No significant interval change.
[2018-12-18 16:50] LABS: ALT/SGPT 69 U/L (12-78); AST/SGOT 61 U/L (15-37); Albumin 4.5 g/dL (3.4-5.0); Alkaline Phosphatase 47 U/L (45-117); BUN Blood Urea Nitrogen 25 mg/dL (7-18); Bicarbonate 25 mmol/L (21-32); Bilirubin Direct < 0.1 mg/dL (0-0.2); Bilirubin Total 0.3 mg/dL (0.2-1.0); Glucose Level 95 mg/dL (74-106); NT PRO-BNP 52 pg/mL (<125); Potassium 4.4 mmol/L (3.5-5.1); Protein, Total 7.5 g/dL (6.4-8.2); Sodium Level 142 mmol/L (136-145)
--- NOTE | 2018-12-18 17:25 | RAD REPORT ---
EXAM DESCRIPTION: US - Extrem Venous W Compress Preet - 12/18/2018 4:54 pm CLINICAL HISTORY: Leg pain and swelling COMPARISON: None. TECHNIQUE: Real-time sonographic evaluation of the bilateral lower extremity common femoral, superfi cial femoral, popliteal and posterior tibial veins was performed. FINDINGS: Normal compressibility, flow augmentation, phasic flow and spontaneous flow are identified in the left and right lower extremity common femoral, superficial femoral, popliteal and posterior t ibial veins. No intraluminal filling defects seen. IMPRESSION: No DVT in either lower extremity.
--- NOTE | 2018-12-18 17:28 | EDPHYS ---
Physician Documentation [facility] Name: Abram Cuellar Age: 38 yrs Sex: Male : 1980 Arrival Date: 12/18/2018 Time: 14:49 Bed 24 Private MD: ED Physician Angel Kirkpatrick HPI: 12/18 15:50 This 38 yrs old Male presents to ER via Ambulatory with complaints of arm cp swelling, Leg Swelling. 15:50 The patient presents with swelling. cp 15:50 The complaints affect the right lower leg and left lower leg. cp 15:50 Context: worse after working all day. cp 15:50 Onset: The symptoms/episode began/occurred 1-2 weeks. cp 15:50 Modifying factors: the symptoms are aggravated by standing for long periods. Associated cp signs and symptoms: Pertinent negatives fever, rash, warmth, chest pain, shortness of breath. Treatment prior to arrival includes: no previous treatment. Severity of symptoms: in the emergency department the symptoms have improved. Historical: - Allergies: 15:06 No Known Allergies; la1 - PMHx: 15:06 None; la1 - Immunization history:: Adult Immunizations up to date. - Social history:: Smoking status: Patient/guardian denies using tobacco. - Ebola Screening: : No symptoms or risks identified at this time. ROS: 16:00 Constitutional: Negative for body aches, chills, fever, poor PO intake. cp 16:00 Eyes: Negative for injury, pain, redness, and discharge. cp 16:00 ENT: Negative for drainage from ear(s), ear pain, sore throat, difficulty swallowing, difficulty handling secretions. 16:00 Neck: Negative for pain with movement, pain at rest, stiffness. 16:00 Cardiovascular: Positive for edema, Negative for chest pain, palpitations. 16:00 Respiratory: Negative for cough, dyspnea on exertion, shortness of breath, wheezing. 16:00 Abdomen/GI: Negative for abdominal pain, nausea, vomiting, and diarrhea, constipation, black/tarry stool, rectal bleeding. 16:00 Back: Negative for pain at rest, pain with movement, radiated pain. 16:00 : Negative for urinary symptoms. 16:00 Skin: Negative for rash. 16:00 Neuro: Negative for altered mental status, dizziness, headache, numbness, syncope, weakness. 16:00 All other systems are negative. Exam: 16:05 Constitutional: The patient appears in no acute distress, alert, awake, comfortable, cp non-diaphoretic, non-toxic, well developed, well nourished. 16:05 Head/Face: Normocephalic, atraumatic. cp 16:05 Eyes: Periorbital structures: appear normal, Conjunctiva: normal, no exudate, no injection, Sclera: no appreciated abnormality, Lids and lashes: appear normal, bilaterally. 16:05 ENT: External ear(s): are unremarkable, Nose: is normal, Mouth: Lips: moist, Oral mucosa: pink and intact, moist, Posterior pharynx: is normal, airway is patent, no erythema, no exudate. 16:05 Neck: ROM/movement: is normal, is supple, without pain, no range of motions limitations, no nuchal rigidity. 16:05 Chest/axilla: Inspection: normal, Palpation: is normal, no crepitus, no tenderness. 16:05 Cardiovascular: Rate: normal, Rhythm: regular, Heart sounds: murmur, not appreciated, Edema: ankle edema, that is very mild. 16:05 Respiratory: the patient does not display signs of respiratory distress, Respirations: normal, no use of accessory muscles, no retractions, no splinting, no tachypnea, labored breathing, is not present, Breath sounds: are clear throughout, no decreased breath sounds, no stridor, no wheezing. 16:05 Abdomen/GI: Inspection: abdomen appears normal, Palpation: abdomen is soft and non-tender, in all quadrants, rebound tenderness, is not appreciated, voluntary guarding, is not appreciated, involuntary guarding, is not appreciated. 16:05 Back: pain, is absent, ROM is normal. 16:05 Skin: no rash present. 16:05 Neuro: Orientation: to person, place \T\ time. Mentation: is normal, Cerebellar function: is grossly normal, Motor: moves all fours, strength is normal, Sensation: is normal. 16:09 ECG was reviewed by the Attending Physician. cp 17:05 : Rectal exam: Stool: brown, Guaiac testing: results were negative for occult blood. cp Vital Signs: 15:07 BP 128 / 84; Pulse 63; Resp 16; Temp 97.5; Pulse Ox 98% on R/A; Weight 98.88 kg; Height la1 5 ft. 8 in. (172.72 cm); 17:44 BP 122 / 78; Pulse 70; Resp 18; Temp 98; Pulse Ox 100% on R/A; Pain 0/10; mg2 15:07 Body Mass Index 33.15 (98.88 kg, 172.72 cm) la1 MDM: 15:28 Patient medically screened. the [facility] 17:26 Data reviewed: vital signs, nurses notes, lab test result(s), EKG, radiologic studies, cp plain films, ultrasound. 17:26 Test interpretation: by ED physician or midlevel provider: plain radiologic studies. cp Counseling: I had a detailed discussion with the patient and/or guardian regarding: the historical points, exam findings, and any diagnostic results supporting the discharge/admit diagnosis, lab results, radiology results, the need for outpatient follow up, a family practitioner, to return to the emergency department if symptoms worsen or persist or if there are any questions or concerns that arise at home. ED course: VSS. Recommend compression stockings for support and follow up with family physician for mild anemia.. 12/18 15:49 Order name: Basic Metabolic Panel; Complete Time: 16:59 cp 12/18 16:59 Interpretation: Normal except: CL 111; BUN 25; CRE 1.33; GFR 60. cp 12/18 15:49 Order name: CBC with Diff; Complete Time: 16:59 cp 12/18 16:59 Interpretation: Normal except: RBC 3.47; HGB 11.6; HCT 34.3. cp 12/18 15:49 Order name: LFT's; Complete Time: 16:59 cp 12/18 17:00 Interpretation: Normal except: AST 61. cp 12/18 15:49 Order name: NT PRO-BNP; Complete Time: 16:59 cp 12/18 15:49 Order name: PT-INR; Complete Time: 16:59 cp 12/18 15:49 Order name: XRAY Chest (1 view); Complete Time: 16:59 cp 12/18 15:49 Order name: EKG; Complete Time: 15:50 cp 12/18 15:49 Order name: Cardiac monitoring; Complete Time: 16:20 cp 12/18 15:49 Order name: EKG - Nurse/Tech; Complete Time: 16:20 cp 12/18 15:49 Order name: IV Saline Lock; Complete Time: 16:20 12/18 15:49 Order name: Labs collected and sent; Complete Time: 16:20 12/18 15:49 Order name: O2 Per Protocol; Complete Time: 16:20 12/18 15:49 Order name: O2 Sat Monitoring; Complete Time: 16:20 12/18 15:49 Order name: US Extremity Venous W Compression Preet; Complete Time: 17:34 12/18 17:34 Interpretation: Report reviewed. EC: Rate is 56 beats/min. Rhythm is regular. TN interval is normal. QRS interval is cp prolonged at 104 msec. QT interval is normal. Interpreted by me. Reviewed by me. Administered Medications: No medications were administered Disposition: 12/19 09:16 Co-signature as Attending Physician, Angel Kirkpatrick MD I agree with the assessment and the [facility] plan of care. Disposition: 12/18/18 17:27 Discharged to Home. Impression: Anemia in other chronic diseases classified elsewhere, Edema, unspecified. - Condition is Stable. - Discharge Instructions: Anemia, Nonspecific, Peripheral Edema. - Medication Reconciliation Form, Thank You Letter, Antibiotic Education, Prescription Opioid Use form. - Follow up: Private Physician; When: 2 - 3 days; Reason: Recheck today's complaints. - Problem is new. - Symptoms have improved. Signatures: Dispatcher [employer] Angel Nelson MD MD cha Attema, Lee, RN RN la1 Angel Hilliard PA PA cp Gardose, Michele RN RN mg2 Corrections: (The following items were deleted from the chart) 12/18 17:56 17:27 12/18/2018 17:27 Discharged to Home. Impression: Anemia in other chronic diseases mg2 classified elsewhere; Edema, unspecified. Condition is Stable. Forms are Medication Reconciliation Form, Thank You Letter, Antibiotic Education, Prescription Opioid Use. Follow up: Private Physician; When: 2 - 3 days; Reason: Recheck today's complaints. Problem is new. Symptoms have improved. cp
--- NOTE | 2018-12-18 17:28 | ER ---
Nurse's Notes [facility] Name: Abram Cuellar Age: 38 yrs Sex: Male : 1980 Arrival Date: 12/18/2018 Time: 14:49 Bed 24 Private MD: Diagnosis: Anemia in other chronic diseases classified elsewhere;Edema, unspecified Presentation: 12/18 15:06 Presenting complaint: Patient states: for the past week my legs and feet swell up at la1 the end of the day and when I elevate them they go down, I feel like my belly is swollen to. Denies SOB. Transition of care: patient was not received from another setting of care. Onset of symptoms was December 18, 2018. Risk Assessment: Do you want to hurt yourself or someone else? Patient reports no desire to harm self or others. Initial Sepsis Screen: Does the patient meet any 2 criteria? No. Patient's initial sepsis screen is negative. Does the patient have a suspected source of infection? No. Patient's initial sepsis screen is negative. Care prior to arrival: None. 15:06 Method Of Arrival: Ambulatory la1 15:06 Acuity: DUYEN 3 la1 Historical: - Allergies: 15:06 No Known Allergies; la1 - PMHx: 15:06 None; la1 - Immunization history:: Adult Immunizations up to date. - Social history:: Smoking status: Patient/guardian denies using tobacco. - Ebola Screening: : No symptoms or risks identified at this time. Screenin:01 Abuse screen: Denies threats or abuse. Denies injuries from another. Nutritional mg2 screening: No deficits noted. Tuberculosis screening: No symptoms or risk factors identified. Fall Risk IV access (20 points). Assessment: 15:59 General: Appears in no apparent distress. comfortable, Behavior is calm, cooperative. mg2 Pain: Complains of pain in right arm, right leg and left leg Pain does not radiate. Pain currently is 2 out of 10 on a pain scale. Quality of pain is described as aching, Pain began gradually. Neuro: Level of Consciousness is awake, alert, obeys commands, Oriented to person, place, time, situation. Cardiovascular: Capillary refill < 3 seconds Patient's skin is warm and dry. Respiratory: Airway is patent Respiratory effort is even, unlabored, Respiratory pattern is regular, symmetrical. GI: No signs and/or symptoms were reported involving the gastrointestinal system. : No signs and/or symptoms were reported regarding the genitourinary system. EENT: No signs and/or symptoms were reported regarding the EENT system. Derm: Skin is intact, is healthy with good turgor, Skin is pink, warm \T\ dry. normal. Musculoskeletal: Circulation, motion, and sensation intact. Capillary refill < 3 seconds, Reports swelling on both legs and both arm. 16:21 Reassessment: patient sent to ultrasound via wheelchair. mg2 Vital Signs: 15:07 BP 128 / 84; Pulse 63; Resp 16; Temp 97.5; Pulse Ox 98% on R/A; Weight 98.88 kg; Height la1 5 ft. 8 in. (172.72 cm); 17:44 BP 122 / 78; Pulse 70; Resp 18; Temp 98; Pulse Ox 100% on R/A; Pain 0/10; mg2 15:07 Body Mass Index 33.15 (98.88 kg, 172.72 cm) la1 ED Course: 14:49 Patient arrived in ED. mr 15:06 Triage completed. la1 15:07 Arm band placed on right wrist. la1 15:23 Rubio Morrow, COREY is Primary Nurse. rv 15:24 Angel Hilliard PA is PHCP. cp 15:24 Angel Kirkpatrick MD is Attending Physician. cp 15:59 Radiology exam delayed due to xray will let us know when they are done. hr 16:01 Radiology exam delayed due to IV insertion attempt and/or patient not having mh1 appropriate IV at this time. 16:02 Patient has correct armband on for positive identification. Door closed. Warm blanket mg2 given. 16:02 No provider procedures requiring assistance completed. mg2 16:20 Inserted saline lock: 22 gauge in left forearm, using aseptic technique. Blood mg2 collected. by BINA Romero tech. 16:22 XRAY Chest (1 view) In Process Unspecified. EDMS 16:55 US Extremity Venous W Compression Preet In Process Unspecified. EDMS 17:44 IV discontinued, intact, bleeding controlled, No redness/swelling at site. Pressure mg2 dressing applied. Administered Medications: No medications were administered Outcome: 17:27 Discharge ordered by . cp 17:44 Discharged to home ambulatory. mg2 17:44 Condition: stable 17:44 Discharge instructions given to patient, Instructed on discharge instructions, follow up and referral plans. Demonstrated understanding of instructions, follow-up care. 17:56 Patient left the ED. mg2 Signatures: Dispatcher [employer] BINASaloni Olivas Martha 1 Greta Parker Lee, RN RN la1 Angel Hilliard PA PA cp Gardose, Michele, RN RN mg2 Rubio Morrow RN RN rv
[2018-12-18 20:41] VITALS: BP 122/78; TEMP 98; O2SAT 100
--- NOTE | 2018-12-19 15:49 | EKG ---
Test Date: 2018-12-18 Test Time: 16:04:24 Canvas Shrinker: ALEX MEASUREMENT RESULTS: Intervals: Rate: 56 OR: 166 QRSD: 104 QT: 434 QTc: 418 [place]: P: 29 OR: 166 QRS: 6 T: 2 INTERPRETIVE STATEMENTS: Sinus bradycardia Otherwise normal ECG Compared to ECG 08/23/2016 09:14:59 No significant changes Electronically Signed On 12-19-18 15:48:55 CDT by Rene Nice
== END 2018-12-18 17:56 | disposition home or self-care (01) ==
LOC: ER 14:46
DX: R60.9 Edema, unspecified (principal); D63.8 Anemia in other chronic diseases classified elsewhere
CPT/HCPCS: 36415; 71045; 80048; 80076; 83880; 85025; 85610; 93005; 93970; 99283

== ENCOUNTER 2019-02-08 18:06 | Emergency (ER) | payer SELFPAY ==
[2019-02-08] MEDS ORDERED: DOXYCYCLINE 100 MG CAP PO ONE (19:02)
[2019-02-08] MEDS ORDERED: IBUPROFEN 400 MG TAB ONE (19:02)
[2019-02-08] MEDS ORDERED: MUPIROCIN 2% OINT 22GM TUBE TOP ONE (19:02)
[2019-02-08] MEDS ORDERED: IBUPROFEN 200 MG TAB PO ONE (19:02)
[2019-02-08] MEDS ORDERED: SMZ./TMP. 800/160 MG TABLET ONE (19:02)
--- NOTE | 2019-02-08 19:04 | ER ---
Nurse's Notes [facility] Name: Abram Cuellar Age: 38 yrs Sex: Male : 1980 Arrival Date: 02/08/2019 Time: 18:09 Bed 20 Private MD: None, None Diagnosis: Abscess, furuncle and carbuncle of nose Presentation: 02/08 18:24 Presenting complaint: Patient states: LEFT NARE AND LEFT MAXILLARY SINUS PAIN SINCE bp LAST PM. Transition of care: patient was not received from another setting of care. Onset of symptoms is unknown. Risk Assessment: Do you want to hurt yourself or someone else? Patient reports no desire to harm self or others. Initial Sepsis Screen: Does the patient meet any 2 criteria? No. Patient's initial sepsis screen is negative. Does the patient have a suspected source of infection? No. Patient's initial sepsis screen is negative. 18:24 Method Of Arrival: Ambulatory bp 18:24 Acuity: DUYEN 4 bp 19:16 Care prior to arrival: None. wh Historical: - Allergies: 18:27 No Known Allergies; bp - Home Meds: 18:27 None [Active]; bp - PMHx: 18:27 None; bp - Immunization history:: Adult Immunizations up to date. - Social history:: Smoking status: Patient/guardian denies using tobacco. - Ebola Screening: : No symptoms or risks identified at this time. Screenin:16 Abuse screen: Denies threats or abuse. Denies injuries from another. Nutritional wh screening: No deficits noted. Tuberculosis screening: No symptoms or risk factors identified. Fall Risk None identified. Assessment: 18:32 General: Appears in no apparent distress. well groomed, well developed, well nourished, sg Behavior is calm, cooperative, appropriate for age. Pain: Complains of pain in left nostril and left cheek Quality of pain is described as throbbing, "sore and tender". Neuro: Level of Consciousness is awake, alert, obeys commands, Oriented to person, place, time, Director Of Student Services are equal bilaterally Moves all extremities. Gait is steady, Speech is normal, Facial symmetry appears normal. Cardiovascular: Capillary refill is brisk in bilateral fingers Patient's skin is warm and dry. Chest pain is denied. Respiratory: Respiratory effort is even, unlabored, Respiratory pattern is regular, symmetrical. GI: No signs and/or symptoms were reported involving the gastrointestinal system. : No signs and/or symptoms were reported regarding the genitourinary system. EENT: Nares are clear bilaterally. Derm: Skin is pink, warm \\T\\ dry. Musculoskeletal: Circulation, motion, and sensation intact. Range of motion: intact in all extremities. 19:20 Reassessment: Patient appears in no apparent distress at this time. No changes from previously documented assessment. Patient and/or family updated on plan of care and expected duration. Pain level reassessed. Patient is alert, oriented x 3, equal unlabored respirations, skin warm/dry/pink. Vital Signs: 18:27 BP 129 / 87; Pulse 63; Resp 16; Temp 97.1; Pulse Ox 99% ; Weight 97.07 kg; Height 5 ft. bp 9 in. (175.26 cm); 18:27 Body Mass Index 31.60 (97.07 kg, 175.26 cm) bp ED Course: 18:09 Patient arrived in ED. ag5 18:09 None, None is Private Physician. ag5 18:26 Triage completed. bp 18:27 Arm band placed on. bp 18:28 Angel Kirkpatrick MD is Attending Physician. storm 18:31 Bruce Payne, RN is Primary Nurse. sg 18:56 Report given to Monty NICOLE. sg 19:00 Monty Garcia is Primary Nurse. 19:02 Elyssa Hale MD is Referral Physician. [facility] 19:16 Patient has correct armband on for positive identification. Bed in low position. Call light in reach. Side rails up X 1. Pulse ox on. NIBP on. 19:16 No provider procedures requiring assistance completed. Patient did not have IV access during this emergency room visit. Administered Medications: 19:11 Drug: Doxycycline 200 mg Route: PO; 19:21 Follow up: Response: No adverse reaction 19:11 Drug: Motrin 600 mg Route: PO; 19:21 Follow up: Response: No adverse reaction 19:12 Drug: Bactroban Ointment 2 % 1 application {Note: Left Nare.} Route: Topical; Site: affected area; 19:21 Follow up: Response: No adverse reaction 19:12 Drug: Bactrim (160 mg-800 mg (DS) 1 tablet Route: PO; 19:21 Follow up: Response: No adverse reaction Point of Care Testing: Blood Glucose: 19:21 Blood Glucose: 90 mg/dL; Ranges: Outcome: 19:03 Discharge ordered by . storm 19:16 Discharged to home ambulatory. 19:16 Condition: good 19:16 Discharge instructions given to patient, Instructed on discharge instructions, follow up and referral plans. no drinking with medication, no driving heavy equipment, medication usage, POC Skin abscess and Cellulitis Demonstrated understanding of instructions, follow-up care, medications, POC Prescriptions given X 4. 19:22 Patient left the ED. Signatures: Bruce Payne RN RN sg Anderson, Corey, MD MD cha Habalo, Monty Ramiro Archibald RN RN Corina Jacob ag5
--- NOTE | 2019-02-08 19:04 | EDPHYS ---
Physician Documentation [facility] Name: Abram Cuellar Age: 38 yrs Sex: Male : 1980 Arrival Date: 02/08/2019 Time: 18:09 Bed 20 Private MD: None, None ED Physician Angel Kirkpatrick HPI: 02/08 18:58 This 38 yrs old Male presents to ER via Ambulatory with complaints of Nose storm Pain. 18:58 The patient presents with nasal drainage, that is watery. Onset: The symptoms/episode storm began/occurred 2 day(s) ago. Modifying factors: The symptoms are alleviated by nothing. the symptoms are aggravated by nothing. Associated signs and symptoms: The patient has no apparent associated signs or symptoms. Historical: - Allergies: 18:27 No Known Allergies; bp - Home Meds: 18:27 None [Active]; bp - PMHx: 18:27 None; bp - Immunization history:: Adult Immunizations up to date. - Social history:: Smoking status: Patient/guardian denies using tobacco. - Ebola Screening: : No symptoms or risks identified at this time. ROS: 18:59 Constitutional: Negative for fever, chills, and weight loss, Eyes: Negative for injury, storm pain, redness, and discharge, Neck: Negative for injury, pain, and swelling, Cardiovascular: Negative for chest pain, palpitations, and edema, Respiratory: Negative for shortness of breath, cough, wheezing, and pleuritic chest pain, Abdomen/GI: Negative for abdominal pain, nausea, vomiting, diarrhea, and constipation, Back: Negative for injury and pain, : Negative for injury, bleeding, discharge, and swelling, MS/Extremity: Negative for injury and deformity, Neuro: Negative for headache, weakness, numbness, tingling, and seizure, Psych: Negative for depression, anxiety, suicide ideation, homicidal ideation, and hallucinations, Allergy/Immunology: Negative for hives, rash, and allergies, Endocrine: Negative for neck swelling, polydipsia, polyuria, polyphagia, and marked weight changes, Hematologic/Lymphatic: Negative for swollen nodes, abnormal bleeding, and unusual bruising. 18:59 ENT: Positive for of the nose, nasal discharge. Exam: 18:59 Constitutional: This is a well developed, well nourished patient who is awake, alert, storm and in no acute distress. Head/Face: Normocephalic, atraumatic. Eyes: Pupils equal round and reactive to light, extra-ocular motions intact. Lids and lashes normal. Conjunctiva and sclera are non-icteric and not injected. Cornea within normal limits. Periorbital areas with no swelling, redness, or edema. Neck: Trachea midline, no thyromegaly or masses palpated, and no cervical lymphadenopathy. Supple, full range of motion without nuchal rigidity, or vertebral point tenderness. No Meningismus. Chest/axilla: Normal chest wall appearance and motion. Nontender with no deformity. No lesions are appreciated. Cardiovascular: Regular rate and rhythm with a normal S1 and S2. No gallops, murmurs, or rubs. Normal PMI, no JVD. No pulse deficits. Respiratory: Lungs have equal breath sounds bilaterally, clear to auscultation and percussion. No rales, rhonchi or wheezes noted. No increased work of breathing, no retractions or nasal flaring. Abdomen/GI: Soft, non-tender, with normal bowel sounds. No distension or tympany. No guarding or rebound. No evidence of tenderness throughout. Back: No spinal tenderness. No costovertebral tenderness. Full range of motion. Male : Normal genitalia with no discharge or lesions. Skin: Warm, dry with normal turgor. Normal color with no rashes, no lesions, and no evidence of cellulitis. MS/ Extremity: Pulses equal, no cyanosis. Neurovascular intact. Full, normal range of motion. Neuro: Awake and alert, GCS 15, oriented to person, place, time, and situation. Cranial nerves II-XII grossly intact. Motor strength 5/5 in all extremities. Sensory grossly intact. Cerebellar exam normal. Normal gait. Psych: Awake, alert, with orientation to person, place and time. Behavior, mood, and affect are within normal limits. 18:59 ENT: Nose: External nose: erythema is noted, apex of the nose and left side of nose. Vital Signs: 18:27 BP 129 / 87; Pulse 63; Resp 16; Temp 97.1; Pulse Ox 99% ; Weight 97.07 kg; Height 5 ft. bp 9 in. (175.26 cm); 18:27 Body Mass Index 31.60 (97.07 kg, 175.26 cm) bp MDM: 18:28 Patient medically screened. [facility] 19:01 Data reviewed: vital signs, nurses notes. [facility] 02/08 19:12 Order name: Glucometer Result [facility] 02/08 19:02 Order name: Blood Glucose Level; Complete Time: 19:11 [facility] Administered Medications: 19:11 Drug: Doxycycline 200 mg Route: PO; 19:21 Follow up: Response: No adverse reaction 19:11 Drug: Motrin 600 mg Route: PO; 19:21 Follow up: Response: No adverse reaction 19:12 Drug: Bactroban Ointment 2 % 1 application {Note: Left Nare.} Route: Topical; Site: affected area; 19:21 Follow up: Response: No adverse reaction 19:12 Drug: Bactrim (160 mg-800 mg (DS) 1 tablet Route: PO; 19:21 Follow up: Response: No adverse reaction Point of Care Testing: Blood Glucose: : Blood Glucose: 90 mg/dL; Ranges: Critical Glucose Levels:Adult <50 mg/dl or >400 mg/dl <40 mg/dl or >180 mg/dl Disposition: 02/08/19 19:03 Discharged to Home. Impression: Abscess, furuncle and carbuncle of nose. - Condition is Stable. - Discharge Instructions: Skin Abscess, Cellulitis, Adult, Skin Abscess, [id number], Cellulitis, Adult, [id number]. - Prescriptions for Bactroban 2 % Topical Ointment - Apply to affected area 1 application by TOPICAL route every 12 hours; 30 gram. Tylenol- Codeine #3 300-30 mg Oral Tablet - take 2 tablets by ORAL route every 6 hours As needed; 20 tablet. Doxycycline Hyclate 100 mg Oral Tablet - take 1 tablet by ORAL route every 12 hours; 20 tablet. Bactrim DS 800- 160 mg Oral Tablet - take 1 tablet by ORAL route every 12 hours for 10 days; 20 tablet. - Medication Reconciliation Form, Thank You Letter, Antibiotic Education, Prescription Opioid Use form. - Follow up: Private Physician; When: 2 - 3 days; Reason: Recheck today's complaints, Continuance of care, Re-evaluation by your physician. Follow up: Elyssa Hale MD; When: 2 - 3 days; Reason: Recheck today's complaints, Re-evaluation by your physician. - Problem is new. - Symptoms have improved. Signatures: Dispatcher [employer] EDMS Angel Kirkpatrick MD MD cha Habalo, Winsy wh Peltier, Brian, RN RN bp Corrections: (The following items were deleted from the chart) 19:22 19:03 02/08/2019 19:03 Discharged to Home. Impression: Abscess, furuncle and carbuncle wh of nose. Condition is Stable. Forms are Medication Reconciliation Form, Thank You Letter, Antibiotic Education, Prescription Opioid Use. Follow up: Private Physician; When: 2 - 3 days; Reason: Recheck today's complaints, Continuance of care, Re-evaluation by your physician. Follow up: Elyssa Hale; When: 2 - 3 days; Reason: Recheck today's complaints, Re-evaluation by your physician. Problem is new. Symptoms have improved. storm
[2019-02-08 19:28] VITALS: BP 129/87; TEMP 97.1; O2SAT 99
== END 2019-02-08 19:22 | disposition home or self-care (01) ==
LOC: ER 18:06
DX: J34.0 Abscess, furuncle and carbuncle of nose (principal)
CPT/HCPCS: 36415; 82962; 99283

== ENCOUNTER 2019-09-07 11:53 | Emergency (ER) | payer SELFPAY ==
[2019-09-07 13:02] LABS: Urine Blood TRACE (NEG); Urine Glucose NEGATIVE (NEG); Urine Protein NEGATIVE (NEG); Urine Specific Gravity 1.025 (1.005-1.030)
[2019-09-07] MEDS ORDERED: KETOROLAC 30 MG/ML INJ ONE (13:45)
--- NOTE | 2019-09-07 15:11 | RAD REPORT ---
EXAM DESCRIPTION: RAD - Lumbar Spine 3 Views - 09/07/2019 2:33 pm CLINICAL HISTORY: LOWER BACK PAIN COMPARISON: No comparisons FINDINGS: A three-view lumbar spine examination was performed. Lumbar bodies are normal in height and alignment. No fracture or acute bony process seen. Slight narr owing of the T12-L1 disc space. No other disc space narrowing. No other significant findings. No par s defects identified. IMPRESSION: No lumbar vertebral abnormality seen. There is narrowing of the T12-L1 disc space.
--- NOTE | 2019-09-07 18:07 | ER ---
Nurse's Notes [facility] Name: Abram Cuellar Age: 39 yrs Sex: Male : 1980 Arrival Date: 09/07/2019 Time: 11:54 Bed 26 Private MD: Diagnosis: Low back pain;Strain of other muscles and tendons at lower leg level Presentation: 09/06 12:13 Chief complaint: Patient states: Low back pain from L to R started a week ago. ca1 Described as stabbing pain. Denies urinary symptoms. Denies recent back injury. Reports swelling of bilateral calves with increased ambulation. Coronavirus screen: Proceed with normal triage. Patient denies a cough. Patient denies shortness of breath or difficulty breathing. Patient denies measured and/or subjective temperature greater than 100.4F prior to today's visit. Patient denies travel on a cruise ship or to a country the [facility] currently lists as an affected area. Patient denies contact with known and/or suspected case of COVID-19. Ebola Screen: Patient negative for fever greater than or equal to 101.5 degrees Fahrenheit, and additional compatible Ebola Virus Disease symptoms Patient denies exposure to infectious person. Patient denies travel to an Ebola-affected area in the 21 days before illness onset. No symptoms or risks identified at this time. Initial Sepsis Screen: Does the patient meet any 2 criteria? No. Patient's initial sepsis screen is negative. Does the patient have a suspected source of infection? No. Patient's initial sepsis screen is negative. Risk Assessment: Do you want to hurt yourself or someone else? Patient reports no desire to harm self or others. Onset of symptoms was September 07, 2019. 12:13 Method Of Arrival: Ambulatory ca1 12:13 Acuity: DUYEN 4 ca1 Historical: - Allergies: 12:17 No Known Allergies; ca1 - Home Meds: 12:17 None [Active]; ca1 - PMHx: 12:17 None; ca1 - PSHx: 12:17 Appendectomy; Hernia repair; ca1 - Immunization history:: Adult Immunizations up to date. - Social history:: Smoking status: Patient reports the use of cigarette tobacco products, denies chronic smoking, but will smoke occasionally. Screenin:30 Abuse screen: Denies threats or abuse. Denies injuries from another. Nutritional iw screening: No deficits noted. Tuberculosis screening: No symptoms or risk factors identified. Fall Risk None identified. Assessment: 13:30 General: Appears in no apparent distress. Behavior is calm, cooperative, appropriate iw for age. Pain: Complains of pain in lumbar area, left low back and right low back. Neuro: Level of Consciousness is awake, alert, obeys commands, Oriented to person, place, time, situation, Moves all extremities. Full function. Cardiovascular: Patient's skin is warm and dry. Respiratory: Respiratory effort is even, unlabored, Respiratory pattern is regular, symmetrical. Derm: Skin is intact, is healthy with good turgor. Musculoskeletal: Range of motion: intact in all extremities. 15:22 Reassessment: Patient appears in no apparent distress at this time. Patient and/or ls4 family updated on plan of care and expected duration. Pain level reassessed. Patient is alert, oriented x 3, equal unlabored respirations, skin warm/dry/pink. Patient states symptoms have improved. 16:20 Reassessment: Patient appears in no apparent distress at this time. ls4 Vital Signs: 12:13 BP 129 / 99; Pulse 72; Resp 16 S; Temp 98.2(O); Pulse Ox 99% on R/A; Weight 99.79 kg ca1 (R); Height 5 ft. 9 in. (175.26 cm) (R); Pain 6/10; 15:17 BP 107 / 82; Pulse 60; Resp 11; Temp 98.0; Pulse Ox 100% on R/A; Pain 4/10; ls4 16:20 BP 112 / 78; Pulse 61; Resp 12; Temp 98.0(O); Pulse Ox 99% on R/A; Pain 5/10; ls4 12:13 Body Mass Index 32.49 (99.79 kg, 175.26 cm) ca1 ED Course: 11:54 Patient arrived in ED. ag5 12:16 Triage completed. ca1 12:17 Arm band placed on right wrist. ca1 13:11 Cheikh Young PA is PHCP. jmm 13:11 Angel Kirkpatrick MD is Attending Physician. jmm 13:23 Chanel Sanchez, COREY is Primary Nurse. iw 14:01 Patient has correct armband on for positive identification. Bed in low position. Call ls4 light in reach. Side rails up X 1. Pulse ox on. NIBP on. Verbal reassurance given. 14:29 Lumbar Spine (3 Views) XRAY In Process Unspecified. EDMS 15:23 No provider procedures requiring assistance completed. Patient did not have IV access ls4 during this emergency room visit. 15:58 PHCP role handed off by Cheikh Young PA kb 15:58 Carri Moore FNP-C is PHCP. kb 18:12 US Extremity Venous W Compression Preet In Process Unspecified. EDMS Administered Medications: 13:42 Drug: Ketorolac 30 mg Route: IM; Site: left deltoid; iw 15:12 Follow up: Response: No adverse reaction; Pain is decreased ls4 Outcome: 18:06 Discharge ordered by . kb 18:22 Patient left the ED. ls4 18:22 Condition: good ls4 18:22 Discharge instructions given to patient, Instructed on discharge instructions, follow up and referral plans. medication usage, safety practices, Demonstrated understanding of instructions, follow-up care, medications, Prescriptions given X 1. 18:22 Discharged to home ambulatory. ls4 Signatures: Dispatcher [employer] EDMS Carri Moore FNP-C FNP-Cheikh Kenny PA PA jmm Williams, Irene, RN RN iw Stewart, Lisa, RN RN ls4 Leann Luna RN RN ca1 Gaskin, Ajare ag5 Corrections: (The following items were deleted from the chart) 09/07 00:41 05/ 19:14 Patient left the ED. ls4 ls4 09/07 00:43 09/06 16:47 Reassessment: Patient appears in no apparent distress at this time. ls4 ls4 09/07 00:43 0512 16:47 BP 112 / 78; Pulse 61bpm; Resp 12bpm; Pulse Ox 99% RA; Temp 98.0F Oral; ls4 Pain 5/10; ls4
--- NOTE | 2019-09-07 18:07 | EDPHYS ---
Physician Documentation [facility] Name: Abram Cuellar Age: 39 yrs Sex: Male : 1980 Arrival Date: 09/07/2019 Time: 11:54 Bed 26 Private MD: BINA Physician Angel Kirkpatrick HPI: 09/06 13:13 This 39 yrs old Male presents to ER via Ambulatory with complaints of Low Back jmm Pain. 13:13 The patient presents with pain that is acute. The pain does not radiate. Onset: The jmm symptoms/episode began/occurred gradually, 1 week(s) ago. Modifying factors: The patient symptoms are alleviated by nothing, the patient symptoms are aggravated by movement. Associated signs and symptoms: Pertinent negatives: abdominal pain, dysuria, fever, hematuria, incontinence, numbness, tingling, vomiting, weakness. 15:44 This is a 39 year old male with no chronic medical conditions that presents to the ED jmm with complaints of low back pain for a week along with bilateral calf pain and swelling. Patient denies fever, shortness of breath, weakness, bowel or bladder problems. . Historical: - Allergies: 12:17 No Known Allergies; ca1 - Home Meds: 12:17 None [Active]; ca1 - PMHx: 12:17 None; ca1 - PSHx: 12:17 Appendectomy; Hernia repair; ca1 - Immunization history:: Adult Immunizations up to date. - Social history:: Smoking status: Patient reports the use of cigarette tobacco products, denies chronic smoking, but will smoke occasionally. ROS: 15:44 Constitutional: Negative for fever, chills, and weight loss, Cardiovascular: Negative jmm for chest pain, palpitations, and edema, Respiratory: Negative for shortness of breath, cough, wheezing, and pleuritic chest pain, Abdomen/GI: Negative for abdominal pain, nausea, vomiting, diarrhea, and constipation. 15:44 Back: Positive for pain with movement. 15:44 MS/extremity: Positive for pain, swelling. 15:44 All other systems are negative. Exam: 15:44 Constitutional: This is a well developed, well nourished patient who is awake, alert, jmm and in no acute distress. Head/Face: atraumatic. Eyes: EOMI, no conjunctival erythema appreciated ENT: Moist Mucus Membranes Neck: Trachea midline, Supple Chest/axilla: Normal chest wall appearance and motion. Cardiovascular: Regular rate and rhythm. No edema appreciated Respiratory: Normal respirations, no respiratory distress appreciated Abdomen/GI: Non distended, soft 15:44 Back: pain, that is mild, of the lumbar area, CVA tenderness, is absent. 15:44 Musculoskeletal/extremity: ROM: intact in all extremities, calf tenderness bilaterally, full dorsalis pulse, compartments are soft, NVI. 15:44 Skin: Appearance: Color: normal in color. 15:44 Neuro: Orientation: is normal, Mentation: is normal, Memory: is normal. 15:44 Psych: Behavior/mood is pleasant, cooperative. Vital Signs: 12:13 BP 129 / 99; Pulse 72; Resp 16 S; Temp 98.2(O); Pulse Ox 99% on R/A; Weight 99.79 kg ca1 (R); Height 5 ft. 9 in. (175.26 cm) (R); Pain 6/10; 15:17 BP 107 / 82; Pulse 60; Resp 11; Temp 98.0; Pulse Ox 100% on R/A; Pain 4/10; ls4 16:20 BP 112 / 78; Pulse 61; Resp 12; Temp 98.0(O); Pulse Ox 99% on R/A; Pain 5/10; ls4 12:13 Body Mass Index 32.49 (99.79 kg, 175.26 cm) ca1 MDM: 13:[address] [facility] 18:06 Data reviewed: vital signs, nurses notes. Data interpreted: Pulse oximetry: on room air kb is 99 %. Interpretation: normal. Counseling: I had a detailed discussion with the patient and/or guardian regarding: the historical points, exam findings, and any diagnostic results supporting the discharge/admit diagnosis, radiology results, the need for outpatient follow up, a family practitioner, to return to the emergency department if symptoms worsen or persist or if there are any questions or concerns that arise at home. 09/06 13:00 Order name: Urine Dipstick--Ancillary (enter results); Complete Time: 13:14 bd 09/06 13:23 Order name: Lumbar Spine (3 Views) XRAY; Complete Time: 15:26 jmm 09/06 15:42 Order name: US Extremity Venous W Compression Preet; Complete Time: 18:44 [place] Administered Medications: 13:42 Drug: Ketorolac 30 mg Route: IM; Site: left deltoid; iw 15:12 Follow up: Response: No adverse reaction; Pain is decreased ls4 Disposition: 09/07 09:40 Co-signature as Attending Physician, Angel Kirkpatrick MD I agree with the assessment and [facility] plan of care. Disposition: 09/07/19 18:06 Discharged to Home. Impression: Low back pain, Strain of other muscles and tendons at lower leg level. - Condition is Stable. - Discharge Instructions: Back Pain, Adult. - Prescriptions for orphenadrine citrate 100 mg Oral Tablet Sustained Release - take 1 tablet by ORAL route 2 times per day As needed; 20 tablet. - Medication Reconciliation Form, Thank You Letter, Antibiotic Education, Prescription Opioid Use, Work release form form. - Follow up: Private Physician; When: 2 - 3 days; Reason: Recheck today's complaints, Continuance of care, Re-evaluation by your physician. Signatures: Dispatcher [employer] EDMS Carri Moore, RIVET CATCHER-C FRANCISCA-Angel Cespedes MD MD cha Mickail, Joel, PA PA [place] Chanel Sanchez RN RN iw Stewart, Lisa, RN RN ls4 Leann Luna RN RN ca1 Corrections: (The following items were deleted from the chart) 09/06 15:55 13:13 Associated signs and symptoms: Pertinent negatives: abdominal pain, dysuria, [place] fever, hematuria, incontinence, numbness, tingling, vomiting, weakness, [place] 19:14 18:06 09/07/2019 18:06 Discharged to Home. Impression: Low back pain; Strain of other ls4 muscles and tendons at lower leg level. Condition is Stable. Discharge Instructions: Back Pain, Adult. Prescriptions for orphenadrine citrate 100 mg Oral Tablet Sustained Release - take 1 tablet by ORAL route 2 times per day As needed; 20 tablet. and Forms are Medication Reconciliation Form, Thank You Letter, Antibiotic Education, Prescription Opioid Use. Follow up: Private Physician; When: 2 - 3 days; Reason: Recheck today's complaints, Continuance of care, Re-evaluation by your physician. kb
--- NOTE | 2019-09-07 18:42 | RAD REPORT ---
EXAM DESCRIPTION: US - Extrem Venous W Compress Preet - 09/07/2019 6:11 pm CLINICAL HISTORY: lower leg pain, swelling Preliminary findings provided at the time of the study. COMPARISON: None. TECHNIQUE: Real-time sonographic evaluation of the bilateral lower extremity common femoral, superfi cial femoral, popliteal and posterior tibial veins was performed. FINDINGS: Normal compressibility, flow augmentation, phasic flow and spontaneous flow are identified in the left and right lower extremity common femoral, superficial femoral, popliteal and posterior t ibial veins. No intraluminal filling defects seen. IMPRESSION: No DVT in either lower extremity.
[2019-09-07 19:30] VITALS: TEMP 98
[2019-09-07 19:32] VITALS: BP 112/78; O2SAT 99
== END 2019-09-07 19:14 | disposition home or self-care (01) ==
LOC: ER 11:53
DX: S86.912A Strain of unspecified muscle(s) and tendon(s) at lower leg level, left leg, initial encounter (principal); S86.911A Strain of unspecified muscle(s) and tendon(s) at lower leg level, right leg, initial encounter; Z72.0 Tobacco use
CPT/HCPCS: 72100; 81003; 93970; 96372; 99284

== ENCOUNTER 2020-10-29 09:24 | Emergency (ER) | payer BC ==
--- NOTE | 2020-10-29 09:49 | EDPHYS ---
Physician Documentation [facility] Name: Abram Cuellar Age: 40 yrs Sex: Male : 1980 Arrival Date: 10/29/2020 Time: 09:29 Bed 19 Private MD: BINA Physician Angel Kirkpatrick HPI: 10/29 09:55 This 40 yrs old Male presents to ER via Ambulatory with complaints of Eye kb Swelling. 09:55 The patient is experiencing pain, redness, swelling, The patient sustained None. to the kb right eye, caused by an unknown mechanism. Onset: The symptoms/episode began/occurred this morning. Duration: the symptoms are continuous. Aggravated by nothing. Alleviated by nothing. Associated signs and symptoms: Pertinent positives: None. Patient wears glasses, wears soft contacts. Severity of symptoms: At their worst the symptoms were mild in the emergency department the symptoms are unchanged. The patient has not experienced similar symptoms in the past. The patient has not recently seen a physician. Pt reports he woke up with swelling, redness and pain to right lower eyelid. . Historical: - Allergies: 09:46 No Known Allergies; ll1 - PMHx: 09:46 None; ll1 - PSHx: 09:46 hernia repair; Appendectomy; wrist SX-gangliosis; ll1 - Immunization history:: Client reports having NOT received the Covid vaccine. Flu vaccine is not up to date. - Social history:: Smoking status: Patient reports the use of cigarette tobacco products, denies chronic smoking, but will smoke occasionally. ROS: 10:01 Constitutional: Negative for fever, chills, and weight loss. kb 10:01 Eyes: Positive for pain, redness, swelling, Negative for discharge, injury or acute deformity, matting, vision loss, visual disturbance. 10:01 All other systems are negative. Exam: 10:01 Constitutional: This is a well developed, well nourished patient who is awake, alert, kb and in no acute distress. ENT: Moist Mucous membranes Respiratory: Respirations even and unlabored. No increased work of breathing, no retractions or nasal flaring. Skin: Warm, dry with normal turgor. Normal color. MS/ Extremity: Pulses equal, no cyanosis. Neurovascular intact. Full, normal range of motion. Neuro: Awake and alert, GCS 15, oriented to person, place, time, and situation. Moves all extremities. Normal gait. Psych: Awake, alert, with orientation to person, place and time. Behavior, mood, and affect are within normal limits. 10:01 Eyes: Extraocular movements: intact throughout, Conjunctiva: normal, Lids and lashes: stye, on the left lid. Vital Signs: 09:47 BP 119 / 95; Pulse 60; Resp 17; Temp 98.1; Pulse Ox 100% ; Weight 97.07 kg; Height 5 ll1 ft. 9 in. (175.26 cm); 10:11 BP 100 / 63; Pulse 55; Resp 20; Pulse Ox 97% on R/A; kg 09:47 Body Mass Index 31.60 (97.07 kg, 175.26 cm) ll1 MDM: 09:41 Patient medically screened. kb 09:55 Data reviewed: vital signs, nurses notes. Data interpreted: Pulse oximetry: on room air kb is 100 %. Interpretation: normal. Counseling: I had a detailed discussion with the patient and/or guardian regarding: the historical points, exam findings, and any diagnostic results supporting the discharge/admit diagnosis, the need for outpatient follow up, an opthalmologist, to return to the emergency department if symptoms worsen or persist or if there are any questions or concerns that arise at home. Administered Medications: No medications were administered Disposition Summary: 10/29/20 09:49 Discharge Ordered Location: Home kb Condition: Stable kb Diagnosis - Hordeolum externum right lower eyelid kb Followup: kb - With: Private Physician - When: 2 - 3 days - Reason: Recheck today's complaints, Continuance of care, Re-evaluation by your physician Followup: kb - With: Emergency Department - When: As needed - Reason: Worsening of condition Discharge Instructions: - Discharge Summary Sheet kb - Stye kb Forms: - Medication Reconciliation Form kb - Thank You Letter kb - Antibiotic Education kb - Prescription Opioid Use kb - Work release form eb Prescriptions: - Erythromycin 5 mg/gram (0.5 %) Ophthalmic Ointment - apply 1 centimeter by OPHTHALMIC route 2-3 times daily for 7 days; 1 tube; kb Refills: 0, Product Selection Permitted Addendum: 10/30/2020 13:16 Co-signature as Attending Physician, Angel Kirkpatrick MD I agree with the assessment and c krishna plan of care. Signatures: Carri Moore, FRANCISCA-C FRANCISCA-Angel Cespedes MD MD cha Lewis, Lynsay, RN RN ll1
--- NOTE | 2020-10-29 09:49 | ER ---
Nurse's Notes [facility] [place] Name: Abram Cuellar Age: 40 yrs Sex: Male : 1980 Arrival Date: 10/29/2020 Time: 09:29 Bed 19 Private MD: Diagnosis: Hordeolum externum right lower eyelid Presentation: 10/29 09:47 Chief complaint: Patient states: 1. Right lower eyelid swelling/tenderness since last ll1 night. No fever. 2. R wrist bump for 2 months. Coronavirus screen: Client denies travel out of the [place] in the last 14 days. At this time, the client does not indicate any symptoms associated with coronavirus-19. Ebola Screen: Patient denies travel to an Ebola-affected area in the 21 days before illness onset. Initial Sepsis Screen: Does the patient meet any 2 criteria? No. Patient's initial sepsis screen is negative. Does the patient have a suspected source of infection? Yes: Other: stye to R eye. Risk Assessment: Do you want to hurt yourself or someone else? Patient reports no desire to harm self or others. Onset of symptoms was October 28, 2020. 09:47 Method Of Arrival: Ambulatory ll1 09:47 Acuity: DUYEN 5 ll1 Historical: - Allergies: 09:46 No Known Allergies; ll1 - PMHx: 09:46 None; ll1 - PSHx: 09:46 hernia repair; Appendectomy; wrist SX-gangliosis; ll1 - Immunization history:: Client reports having NOT received the Covid vaccine. Flu vaccine is not up to date. - Social history:: Smoking status: Patient reports the use of cigarette tobacco products, denies chronic smoking, but will smoke occasionally. Screenin:49 Abuse screen: Denies threats or abuse. Nutritional screening: No deficits noted. ll1 Tuberculosis screening: No symptoms or risk factors identified. 10:12 Fall Risk None identified. kg Assessment: 10:06 General: Appears. General: Appears in no apparent distress. Behavior is calm, kg cooperative, appropriate for age, quiet. Pain: Complains of pain in lateral aspect of conjunctiva of right eye and right lower eyelid Pain currently is 9 out of 10 on a pain scale. at worst was 9 out of 10 on a pain scale. level that patient reports is acceptable is 2 out of 10 on a pain scale. Quality of pain is described as sharp. Neuro: No deficits noted. Cardiovascular: No deficits noted. Respiratory: No deficits noted. GI: No deficits noted. : No deficits noted. EENT: No deficits noted. EENT: Lid(s) w/ stye noted outer aspect of conjuctiva of right eye Reports blurred vision pain in right eye Pain is 9 out of 10 on a pain scale. Vital Signs: 09:47 BP 119 / 95; Pulse 60; Resp 17; Temp 98.1; Pulse Ox 100% ; Weight 97.07 kg; Height 5 ll1 ft. 9 in. (175.26 cm); 10:11 BP 100 / 63; Pulse 55; Resp 20; Pulse Ox 97% on R/A; kg 09:47 Body Mass Index 31.60 (97.07 kg, 175.26 cm) ll1 ED Course: 09:29 Patient arrived in ED. mr 09:41 [facility]C [facility] kb 09:41 Angel Kirkpatrick MD is Attending Physician. kb 09:46 Arm band placed on Patient placed in an exam room, on a stretcher. ll1 09:49 Triage completed. ll1 10:06 Karissa Padilla, RN is Primary Nurse. kg 10:11 No provider procedures requiring assistance completed. Patient did not have IV access kg during this emergency room visit. 10:12 Patient has correct armband on for positive identification. kg Administered Medications: No medications were administered Outcome: 09:49 Discharge ordered by MD. kb 10:11 Discharged to home ambulatory. kg 10:11 Condition: good 10:11 Discharge instructions given to patient, Instructed on discharge instructions, follow up and referral plans. Demonstrated understanding of instructions, follow-up care, medications, Prescriptions given X 1. 10:12 Patient left the ED. kg Signatures: Carri Moore FNP-C FNP-Sharon Saloni Lopez mr Aliyah Montemayor, RN RN ll1 Karissa Padilla, COREY RN kg
[2020-10-29 10:19] VITALS: TEMP 98.1
[2020-10-29 10:20] VITALS: BP 100/63; O2SAT 97
== END 2020-10-29 10:12 | disposition home or self-care (01) ==
LOC: ER 09:24
DX: H00.012 Hordeolum externum right lower eyelid (principal); F17.210 Nicotine dependence, cigarettes, uncomplicated
CPT/HCPCS: 99282

== ENCOUNTER 2021-05-01 20:21 | Emergency (ER) | payer BC ==
[2021-05-01 22:16] LABS: SARS-COV-2 RT PCR NEGATIVE (NEGATIVE)
--- NOTE | 2021-05-01 22:45 | ER ---
Nurse's Notes [facility] Name: Abram Cuellar Age: 40 yrs Sex: Male : 1980 Arrival Date: 05/01/2021 Time: 20:21 Bed 12 Private MD: Diagnosis: Acute upper respiratory infection, unspecified;Acute serous otitis media, right ear Presentation: 05/01 21:12 Chief complaint:. tw5 21:13 Chief complaint: Patient states: " I have been having cough, congestion, and my chest tw5 has been hurting from all the coughing.". Coronavirus screen: Vaccine status: Patient reports being unvaccinated. Ebola Screen: Patient negative for fever greater than or equal to 101.5 degrees Fahrenheit, and additional compatible Ebola Virus Disease symptoms Patient denies exposure to infectious person. Patient denies travel to an Ebola-affected area in the 21 days before illness onset. Initial Sepsis Screen: Does the patient meet any 2 criteria? No. Patient's initial sepsis screen is negative. Does the patient have a suspected source of infection? No. Patient's initial sepsis screen is negative. Risk Assessment: Do you want to hurt yourself or someone else? Patient reports no desire to harm self or others. Onset of symptoms was April 30, 2021. 21:13 Method Of Arrival: Ambulatory tw5 21:13 Acuity: DUYEN 3 tw5 Triage Assessment: 21:15 General: Appears in no apparent distress. Behavior is calm, cooperative, appropriate tw5 for age. Pain: Complains of pain in chest Pain currently is 7 out of 10 on a pain scale. Historical: - Allergies: 21:15 No Known Allergies; tw5 - Home Meds: 21:15 None [Active]; tw5 - PMHx: 21:15 None; tw5 - PSHx: 21:15 wrist SX-gangliosis; hernia repair; Appendectomy; tw5 - Immunization history:: Flu vaccine is not up to date. - Social history:: Smoking status: Patient reports the use of cigarette tobacco products, denies chronic smoking, but will smoke occasionally. Screenin:16 Abuse screen: Denies threats or abuse. Denies injuries from another. Nutritional tw5 screening: No deficits noted. Tuberculosis screening: No symptoms or risk factors identified. Fall Risk None identified. Assessment: 23:02 General: Appears in no apparent distress. Behavior is calm, cooperative. Neuro: Level mk of Consciousness is awake, alert, obeys commands, Oriented to person, place, time, situation. Neuro: Oriented to [employer] Service In[employer] are equal bilaterally Moves all extremities. Speech is normal. Cardiovascular: Heart tones S1 S2 Capillary refill < 3 seconds JVD is absent Patient's skin is warm and dry. Pulses are 2+ in right radial artery, right dorsalis pedis artery, left radial artery and left dorsalis pedis artery Rhythm is regular. Respiratory: Airway is patent Trachea midline Respiratory effort is even, unlabored, Respiratory pattern is regular, symmetrical, Breath sounds are clear bilaterally. Respiratory: Reports cough that is non-productive. GI: Abdomen is non-distended, Bowel sounds. : No signs and/or symptoms were reported regarding the genitourinary system. Derm: Skin is intact, is healthy with good turgor, Skin is pink, warm \\T\\ dry. Skin temperature is warm. Musculoskeletal: Circulation, motion, and sensation intact. Capillary refill < 3 seconds, Range of motion: intact in all extremities. Vital Signs: 21:13 BP 105 / 71; Pulse 74; Resp 20; Temp 98.6; Pulse Ox 93% on R/A; Weight 98.88 kg; Height tw5 5 ft. 9 in. (175.26 cm); Pain 7/10; 23:01 BP 115 / 83; Pulse 73; Resp 18; Temp 98.9; Pulse Ox 96% on R/A; mk 21:13 Body Mass Index 32.19 (98.88 kg, 175.26 cm) tw5 Childs Coma Score: 23:01 Eye Response: spontaneous(4). Verbal Response: oriented(5). Motor Response: obeys commands(6). Total: 15. ED Course: 20:21 Patient arrived in ED. ag3 21:15 Triage completed. tw5 21:15 Arm band placed on left wrist. tw5 22:18 Cheikh Young PA is PHCP. [facility] 22:18 Sunny Ring MD is Attending Physician. [facility] 22:39 Shell Garcia, RN is Primary Nurse. mk 23:04 No provider procedures requiring assistance completed. Patient did not have IV access mk during this emergency room visit. 23:05 Patient has correct armband on for positive identification. Allergy band placed. Bed in mk low position. Call light in reach. Side rails up X 1. Administered Medications: No medications were administered Outcome: 22:44 Discharge ordered by . angelita 23:05 Discharged to home 23:05 Condition: stable 23:05 Discharge instructions given to patient, Instructed on discharge instructions, Prescriptions given X 3. 23:05 Patient left the ED. Signatures: Cheikh Young PA PA jmm Gomez, Alice ag3 Jackie Escobar tw5 Shell Garcia, RN RN
--- NOTE | 2021-05-01 22:45 | EDPHYS ---
Physician Documentation [facility] Name: Abram Cuellar Age: 40 yrs Sex: Male : 1980 Arrival Date: 05/01/2021 Time: 20:21 Bed 12 Private MD: ED Physician Sunny Ring HPI: 05/01 22:42 This 40 yrs old Male presents to ER via Ambulatory with complaints of Cough. jmm 22:42 Onset: The symptoms/episode began/occurred gradually, 1 day(s) ago. Modifying factors: jmm The symptoms are alleviated by nothing, the symptoms are aggravated by nothing. Associated signs and symptoms: Pertinent positives: chest pain, with cough, fever. It is unknown whether or not the patient has had similar symptoms in the past. Historical: - Allergies: 21:15 No Known Allergies; tw5 - Home Meds: 21:15 None [Active]; tw5 - PMHx: 21:15 None; tw5 - PSHx: 21:15 wrist SX-gangliosis; hernia repair; Appendectomy; tw5 - Immunization history:: Flu vaccine is not up to date. - Social history:: Smoking status: Patient reports the use of cigarette tobacco products, denies chronic smoking, but will smoke occasionally. ROS: 22:42 Constitutional: Positive for body aches, chills. jmm 22:42 Respiratory: Positive for cough. 22:42 Back: Positive for pain with movement. 22:42 Neuro: Positive for headache. 22:42 All other systems are negative. Exam: 22:42 Constitutional: This is a well developed, well nourished patient who is awake, alert, jmm and in no acute distress. Head/Face: atraumatic. Eyes: EOMI, no conjunctival erythema appreciated ENT: Moist Mucus Membranes Neck: Trachea midline, Supple 22:42 Cardiovascular: Regular rate and rhythm. No edema appreciated Respiratory: Normal respirations, no respiratory distress appreciated Abdomen/GI: Non distended, soft Back: Normal ROM Skin: General appearance color normal MS/ Extremity: Moves all extremities, no obvious deformities appreciated, no edema noted to the lower extremities Neuro: Awake and alert, normal gait Psych: Behavior is normal, Mood is normal, Patient is cooperative and pleasant 22:42 ENT: TM's: erythema, that is moderate, on the right. Vital Signs: 21:13 BP 105 / 71; Pulse 74; Resp 20; Temp 98.6; Pulse Ox 93% on R/A; Weight 98.88 kg; Height tw5 5 ft. 9 in. (175.26 cm); Pain 7/10; 23:01 BP 115 / 83; Pulse 73; Resp 18; Temp 98.9; Pulse Ox 96% on R/A; mk 21:13 Body Mass Index 32.19 (98.88 kg, 175.26 cm) tw5 Bambi Coma Score: 23:01 Eye Response: spontaneous(4). Verbal Response: oriented(5). Motor Response: obeys mk commands(6). Total: 15. MDM: 22:36 Patient medically screened. [facility] 22:43 Data reviewed: vital signs, nurses notes. Counseling: I had a detailed discussion with angelita the patient and/or guardian regarding: the historical points, exam findings, and any diagnostic results supporting the discharge/admit diagnosis, lab results, radiology results, the need for outpatient follow up, to return to the emergency department if symptoms worsen or persist or if there are any questions or concerns that arise at home. ED course: Patient is alert and non toxic in appearance in the ED. No signs of resp distress. Advised to follow up with pcp and otherwise given strict return precautions. Patient understood and agrees with the plan of care. . 05/01 21:11 Order name: COVID-19/FLU A+B (Document "Date of Onset" if Symptomatic); Complete Time: tw5 22:36 05/01 21:11 Order name: Strep; Complete Time: 22:36 tw5 05/01 21:52 Order name: Throat Culture EDMS Administered Medications: No medications were administered Disposition: 05/02 05:18 Co-signature as Attending Physician, Sunny Ring MD. [email or web address] Disposition Summary: 05/01/21 22:44 Discharge Ordered Location: Home [facility] Condition: Stable [facility] Diagnosis - Acute upper respiratory infection, unspecified jmm - Acute serous otitis media, right ear [facility] Followup: jmm - With: Private Physician - When: 2 - 3 days - Reason: Recheck today's complaints, Continuance of care, Re-evaluation by your physician Discharge Instructions: - Discharge Summary Sheet [facility] - Upper Respiratory Infection, Adult [facility] Forms: - Work release form jmm - Medication Reconciliation Form jm - Thank You Letter jmm - Antibiotic Education jmm - Prescription Opioid Use [facility] Prescriptions: - Bromfed DM 2-30-10 mg/5 mL Oral syrup - take 10 milliliter by ORAL route every 4 hours; 200 milliliter; Refills: 0, jmm Product Selection Permitted - albuterol sulfate 90 mcg/actuation Inhalation HFA aerosol inhaler - inhale 2 puff by INHALATION route every 6 hours; 1 Pump; Refills: 0, Product [facility] Selection Permitted - Zithromax Z-Dennis 250 mg Oral Tablet - take 1 tablet by ORAL route as directed for 5 days Day 1 - take two (2) tablets jm one time. Day 2, 3, 4 , 5 take one (1) tablet once daily.; 6 tablet; Refills: 0, Product Selection Permitted Signatures: Dispatcher [employer] Cheikh Stein PA PA jmm Holmes, Maurice, MD MD [facility] Jackie [facility]
[2021-05-02 00:24] VITALS: BP 115/83; TEMP 98.9; O2SAT 96
== END 2021-05-01 23:05 | disposition home or self-care (01) ==
LOC: ER 20:21
DX: J06.9 Acute upper respiratory infection, unspecified (principal); H65.01 Acute serous otitis media, right ear; Z20.822 Contact with and (suspected) exposure to COVID-19
CPT/HCPCS: 87070; 87081; 0240U; 99282

== ENCOUNTER 2022-04-30 05:40 | Emergency (ER) | payer BC ==
--- OUTSIDE RECORDS SUMMARY | 2022-04-30 05:43 | XMS REPORT | Continuity of Care Document ---
:1980 Author Organization [facility] t Address [address] [place] [address] [place] [id number] Care Team Providers Name Role Phone SPENCER Attending Clinician Unavailable SPENCER Admitting Clinician Unavailable Problems This patient has no known problems. Allergies, Adverse Reactions, Alerts This patient has no known allergies or adverse reactions. Medications This patient has no known medications. Procedures This patient has no known procedures. Encounters Start End Encounter Admission Attending Care Care Encounter Source Date/Time Date/Time Type Type Clinicians Facility Department ID 2021-11-27 2021-11-27 Outpatient LYLA [facility]OLT [id number] 00:00:00 00:00:00 [facility] [id number] Program Results This patient has no known results.
--- NOTE | 2022-04-30 07:58 | RAD REPORT ---
EXAM DESCRIPTION: Karly Mcpherson (2 Views)04/30/2022 7:03 am CLINICAL HISTORY: Cough COMPARISON: 2019 FINDINGS: The lungs appear clear of acute infiltrate. The heart is normal size IMPRESSION: No acute abnormalities displayed
[2022-04-30 11:05] LABS: SARS-COV-2 RT PCR POSITIVE (NEGATIVE)
--- NOTE | 2022-04-30 11:11 | ER ---
Nurse's Notes [facility] Name: Abram Cuellar Age: 41 yrs Sex: Male : 1980 Arrival Date: 04/30/2022 Time: 05:44 Bed 10 Private MD: Diagnosis: Coronavirus infection, unspecified Presentation: 04/30 06:35 Chief complaint: Patient states: "I'm congested and can't smell. Both of my ears are vc1 clogged and hurt. I took the at home covid test and it was negative.". Coronavirus screen: Vaccine status: Patient reports being unvaccinated. congestion, cough unrelated to allergies, runny nose, loss of taste or smell, Client presents with at least one sign or symptom that may indicate coronavirus-19. Standard/surgical mask placed on the client. Provider contacted for isolation considerations. Ebola Screen: No symptoms or risks identified at this time. Initial Sepsis Screen: Does the patient meet any 2 criteria? No. Patient's initial sepsis screen is negative. Does the patient have a suspected source of infection? No. Patient's initial sepsis screen is negative. Risk Assessment: Do you want to hurt yourself or someone else? Patient reports no desire to harm self or others. Onset of symptoms was April 28, 2022. 06:35 Method Of Arrival: Ambulatory vc1 06:35 Acuity: DUYEN 4 vc1 Triage Assessment: 06:38 General: Appears in no apparent distress. uncomfortable, ill, Behavior is calm, vc1 cooperative, appropriate for age. Pain: Complains of pain in right ear and left ear Pain does not radiate. Pain currently is 7 out of 10 on a pain scale. EENT: Reports nasal congestion pain in right ear and left ear. Neuro: Level of Consciousness is awake, alert, obeys commands, Oriented to person, place, time, situation, Appropriate for age. Cardiovascular: No deficits noted. Reports. Respiratory: Airway is patent Respiratory effort is even, unlabored, Respiratory pattern is regular, symmetrical. GI: No deficits noted. No signs and/or symptoms were reported involving the gastrointestinal system. : No deficits noted. No signs and/or symptoms were reported regarding the genitourinary system. Derm: No deficits noted. No signs and/or symptoms reported regarding the dermatologic system. Musculoskeletal: No deficits noted. No signs and/or symptoms reported regarding the musculoskeletal system. Historical: - Allergies: 06:37 No Known Allergies; vc1 - Home Meds: 06:37 None [Active]; vc1 - PMHx: 06:37 None; vc1 - PSHx: 06:37 Appendectomy; hernia repair; wrist SX-gangliosis; vc1 - Immunization history:: Client reports having NOT received the Covid vaccine. - Social history:: Smoking status: Patient reports the use of cigarette tobacco products, 1-2 cigarettes. Screenin:38 Abuse screen: Denies threats or abuse. Nutritional screening: No deficits noted. vc1 Tuberculosis screening: No symptoms or risk factors identified. Assessment: 11:36 General: Appears in no apparent distress. comfortable, Behavior is calm, cooperative. vg1 Pain: Denies pain. Neuro: Level of Consciousness is awake, alert, obeys commands, Oriented to person, place, time, situation. Respiratory: Reports cough that is Airway is patent Respiratory effort is even, unlabored, Breath sounds are clear bilaterally. Derm: Skin is pink, warm \\T\\ dry. Musculoskeletal: Circulation, motion, and sensation intact. Vital Signs: 06:35 BP 128 / 92; Pulse 53; Resp 18; Temp 97.7; Pulse Ox 98% ; Weight 99.79 kg; Height 5 ft. vc1 8 in. (172.72 cm); Pain 7/10; 11:36 Pulse 58; Resp 18; Pulse Ox 98% on R/A; vg1 06:35 Body Mass Index 33.45 (99.79 kg, 172.72 cm) vc1 ED Course: 05:44 Patient arrived in ED. jj6 06:37 Triage completed. vc1 06:38 Arm band placed on right wrist. vc1 07:01 Suyapa Sweet FNP is PHCP. jh7 07:01 Robert Laura MD is Attending Physician. jh7 07:05 Chest Pa And Lat (2 Views) XRAY In Process Unspecified. EDMS 11:09 Morgan Britton is Primary Nurse. rs5 11:36 No provider procedures requiring assistance completed. Patient did not have IV access vg1 during this emergency room visit. Administered Medications: No medications were administered Outcome: 11:11 Discharge ordered by . jh7 11:35 Discharged to home ambulatory. vg1 11:35 Condition: good 11:35 Discharge instructions given to patient, Instructed on discharge instructions, follow up and referral plans. medication usage, Demonstrated understanding of instructions, follow-up care, medications, Prescriptions given X 2. 11:37 Patient left the ED. vg1 Signatures: Dispatcher [employer] EDMarita Coates RN RN vg1 Suyapa Vasquez jj6 Yusra Mayers RN RN vc1 Suyapa Sweet, FRANCISCA DURHAMP 7 Morgan Britton rs5
--- NOTE | 2022-04-30 11:12 | EDPHYS ---
Physician Documentation [facility] Name: Abram Cuellar Age: 41 yrs Sex: Male : 1980 Arrival Date: 04/30/2022 Time: 05:44 Bed 10 Private MD: ED Physician Robert Laura HPI: 04/30 06:40 This 41 yrs old Male presents to ER via Ambulatory with complaints of Sore jh7 Throat, Ear Pain, Cough, Congestion. 06:40 The patient presents with sore throat. The patient describes throat pain as scratchy. jh7 Onset: The symptoms/episode began/occurred 2 day(s) ago. Associated signs and symptoms: Pertinent positives: cough, earache, rhinorrhea, Pertinent negatives chest pain, fever, shortness of breath, vomiting. Historical: - Allergies: 06:37 No Known Allergies; vc1 - Home Meds: 06:37 None [Active]; vc1 - PMHx: 06:37 None; vc1 - PSHx: 06:37 Appendectomy; hernia repair; wrist SX-gangliosis; vc1 - Immunization history:: Client reports having NOT received the Covid vaccine. - Social history:: Smoking status: Patient reports the use of cigarette tobacco products, 1-2 cigarettes. ROS: 06:40 Constitutional: Negative for fever, chills, and weight loss, Eyes: Negative for injury, jh7 pain, redness, and discharge, Neck: Negative for injury, pain, and swelling, Cardiovascular: Negative for chest pain, palpitations, and edema, Abdomen/GI: Negative for abdominal pain, nausea, vomiting, diarrhea, and constipation, Back: Negative for injury and pain, MS/Extremity: Negative for injury and deformity, Skin: Negative for injury, rash, and discoloration, Neuro: Negative for headache, weakness, numbness, tingling, and seizure. 06:40 ENT: Positive for ear pain, rhinorrhea, sore throat. 06:40 Respiratory: Positive for cough, Negative for shortness of breath, wheezing. 06:40 All other systems are negative. Exam: 06:40 Constitutional: This is a well developed, well nourished patient who is awake, alert, jh7 and in no acute distress. Head/Face: Normocephalic, atraumatic. Neck: Trachea midline, no thyromegaly or masses palpated, and no cervical lymphadenopathy. Supple, full range of motion without nuchal rigidity, or vertebral point tenderness. No Meningismus. Cardiovascular: Regular rate and rhythm with a normal S1 and S2. No gallops, murmurs, or rubs. Normal PMI, no JVD. No pulse deficits. Respiratory: Lungs have equal breath sounds bilaterally, clear to auscultation and percussion. No rales, rhonchi or wheezes noted. No increased work of breathing, no retractions or nasal flaring. Abdomen/GI: Soft, non-tender, with normal bowel sounds. No distension or tympany. No guarding or rebound. No evidence of tenderness throughout. Back: No spinal tenderness. No costovertebral tenderness. Full range of motion. Skin: Warm, dry with normal turgor. Normal color with no rashes, no lesions, and no evidence of cellulitis. MS/ Extremity: Pulses equal, no cyanosis. Neurovascular intact. Full, normal range of motion. Neuro: Awake and alert, GCS 15, oriented to person, place, time, and situation. Motor strength 5/5 in all extremities. Sensory grossly intact. Normal gait. 06:40 ENT: Posterior pharynx: erythema, that is mild, post nasal drainage. Vital Signs: 06:35 BP 128 / 92; Pulse 53; Resp 18; Temp 97.7; Pulse Ox 98% ; Weight 99.79 kg; Height 5 ft. vc1 8 in. (172.72 cm); Pain 7/10; 11:36 Pulse 58; Resp 18; Pulse Ox 98% on R/A; vg1 06:35 Body Mass Index 33.45 (99.79 kg, 172.72 cm) vc1 MDM: 06:27 Patient medically screened. storm 11:15 Differential diagnosis: Allergic rhinitis, bronchitis, group A strep tonsillitis, jh7 influenza, pharyngitis, upper respiratory infection, viral syndrome COVID. Data reviewed: vital signs, nurses notes, radiologic studies, plain films. Data interpreted: Pulse oximetry: is 98 %. Interpretation: normal. Test interpretation: by ED physician or midlevel provider: plain radiologic studies. Counseling: I had a detailed discussion with the patient and/or guardian regarding: the historical points, exam findings, and any diagnostic results supporting the discharge/admit diagnosis, to return to the emergency department if symptoms worsen or persist or if there are any questions or concerns that arise at home. 04/30 06:27 Order name: Strep; Complete Time: 10:09 [facility] 04/30 06:27 Order name: COVID-19/FLU A+B; Complete Time: 11:10 [facility] 04/30 06:27 Order name: Chest Pa And Lat (2 Views) XRAY; Complete Time: 09:10 [facility] 04/30 10:16 Order name: Throat Culture EDCT Administered Medications: No medications were administered Disposition: 09:35 Co-signature as Attending Physician, Robert Laura MD I agree with the assessment and rt plan of care. Disposition Summary: 04/30/22 11:11 Discharge Ordered Location: Home [facility] Problem: [facility] Symptoms: are unchanged [facility] Condition: Stable [facility] Diagnosis - Coronavirus infection, unspecified [facility] Followup: [facility] - With: Private Physician - When: 2 - 3 days - Reason: Recheck today's complaints Discharge Instructions: - Discharge Summary Sheet [facility] - COVID-19 [facility] - COVID-19 Frequently Asked Questions [facility] - 10 Things You Can Do to Manage Your COVID-19 Symptoms at Home - [place] [address] Forms: - Medication Reconciliation Form [facility] - Thank You Letter [facility] Prescriptions: - ProAir HFA 90 mcg/actuation Inhalation HFA aerosol inhaler - inhale 2 puff by INHALATION route every 4-6 hours As needed; 1 Inhaler; [facility] Refills: 0, Product Selection Permitted - Tessalon Perles 100 mg Oral Capsule - take 1 capsule by ORAL route every 8 hours As needed; 15 capsule; Refills: 0, [facility] Product Selection Permitted Signatures: Dispatcher [employer] EDAngel Denis MD MD [facility] Yusra Mayers, RN RN vc1 Suyapa Sweet, WHARF TENDER HEAD WHARF TENDER HEAD [facility] Robert Laura MD MD rt
[2022-04-30 11:41] VITALS: BP 128/92; TEMP 97.7; O2SAT 98
== END 2022-04-30 11:37 | disposition home or self-care (01) ==
LOC: ER 05:40
DX: U07.1 COVID-19 (principal); F17.210 Nicotine dependence, cigarettes, uncomplicated
CPT/HCPCS: 87070; 87081; 0240U; 71046; 99283

== ENCOUNTER 2022-05-05 18:57 | Emergency (ER) | payer BC ==
--- OUTSIDE RECORDS SUMMARY | 2022-05-05 19:04 | XMS REPORT | Continuity of Care Document ---
:[address] [facility] t Address [address] Albarran [address] [place] [id number] Care Team Providers Name Role Phone SPENCER [...] HOLT [address] 00:00:00 00:00:00 FLOYD 0802 [facility] Program Results This patient has no known results.
--- NOTE | 2022-05-05 20:58 | RAD REPORT ---
EXAM DESCRIPTION: RAD - Chest Pa And Lat (2 Views) - 05/05/2022 8:47 pm CLINICAL HISTORY: Cough Chest pain. COMPARISON: Chest Pa And Lat (2 Views) dated 04/30/2022; Chest Single View dated 12/18/2018; Chest Sing le View dated 08/23/2016; CHEST SINGLE VIEW dated 10/26/2013 FINDINGS: The lungs are clear. The heart is normal in size. No displaced fractures. IMPRESSION: No acute or concerning finding suspected.
--- NOTE | 2022-05-05 21:22 | ER ---
Nurse's Notes [facility] Name: Abram Cuellar Age: 41 yrs Sex: Male : 1980 Arrival Date: 05/05/2022 Time: 19:01 Bed IW1 Private MD: Diagnosis: SARS-associated coronavirus as the cause of diseases classified elsewhere;Otitis media, unspecified, bilateral Presentation: 05/05 19:13 Chief complaint: Persistent cough, generalized weakness, malaise, and bilateral ear hb pain x 1-2 weeks. Tested COVID positive last week. Coronavirus screen: Client presents with at least one sign or symptom that may indicate coronavirus-19. Provider contacted for isolation considerations. Ebola Screen: No symptoms or risks identified at this time. Initial Sepsis Screen: Does the patient meet any 2 criteria? No. Patient's initial sepsis screen is negative. Does the patient have a suspected source of infection? No. Patient's initial sepsis screen is negative. Risk Assessment: Do you want to hurt yourself or someone else? Patient reports no desire to harm self or others. Onset of symptoms was April 21, 2023. 19:13 Method Of Arrival: Ambulatory hb 19:13 Acuity: DUYEN 3 hb Triage Assessment: 21:36 General: Appears in no apparent distress. Behavior is calm, cooperative, appropriate vc1 for age. Pain:. Respiratory: Airway is patent Respiratory effort is even, unlabored, Respiratory pattern is regular, symmetrical, Breath sounds are clear. Screenin:35 Abuse screen: Denies threats or abuse. Nutritional screening: No deficits noted. vc1 Tuberculosis screening: No symptoms or risk factors identified. Vital Signs: 19:13 BP 163 / 109; Pulse 69; Resp 18; Temp 98.4; Pulse Ox 100% on R/A; Weight 95.71 kg; hb Height 5 ft. 9 in. (175.26 cm); Pain 7/10; 19:13 Body Mass Index 31.16 (95.71 kg, 175.26 cm) hb ED Course: 19:01 Patient arrived in ED. ja2 19:14 Triage completed. hb 19:14 Arm band placed on. hb 19:27 [facility]ri Moore F[facility]-C [facility] kb 19:27 Robert Laura MD is Attending Physician. kb 20:48 Chest Pa And Lat (2 Views) XRAY In Process Unspecified. EDMS 21:36 No provider procedures requiring assistance completed. Patient did not have IV access vc1 during this emergency room visit. Administered Medications: No medications were administered Medication: 21:36 VIS not applicable for this client. vc1 Outcome: 21:22 Discharge ordered by . john 21:36 Discharged to home ambulatory. vc1 21:36 Condition: good 21:36 Discharge instructions given to patient, Instructed on discharge instructions, follow up and referral plans. medication usage, Demonstrated understanding of instructions, follow-up care, medications, Prescriptions given X 1. 21:36 Patient left the ED. vc1 Signatures: Dispatcher [employer] EDMS Carri Moore, COOLING MACHINE OPERATOR-C COOLING MACHINE OPERATOR-Barbara Blanco, RN RN Alissa Gibbs Vanessa RN RN vc1
--- NOTE | 2022-05-05 21:23 | EDPHYS ---
Physician Documentation [facility] Name: Abram Cuellar Age: 41 yrs Sex: Male : 1980 Arrival Date: 05/05/2022 Time: 19:01 Bed IW1 Private MD: ED Physician Robert Laura HPI: 05/05 21:31 This 41 yrs old Male presents to ER via Ambulatory with complaints of Cough, kb Congestion, Ear Pain. 21:31 The patient or guardian reports cough, that is intermittent, described as mild. Onset: kb The symptoms/episode began/occurred last week. Severity of symptoms: At their worst the symptoms were mild, moderate, in the emergency department the symptoms are unchanged. Modifying factors: The symptoms are alleviated by nothing, the symptoms are aggravated by nothing. Associated signs and symptoms: Pertinent positives: earache. The patient has not experienced similar symptoms in the past. The patient has been recently seen at the [facility] Emergency Department, last week. PT reports he was diagnosed with covid last week and has continued to have a cough with ear pain and fullness.. ROS: 21:30 Constitutional: Negative for fever, chills, and weight loss. kb 21:30 ENT: Positive for ear pain, sinus congestion. 21:30 Respiratory: Positive for cough. 21:30 All other systems are negative. Exam: 21:30 Constitutional: This is a well developed, well nourished patient who is awake, alert, kb and in no acute distress. Head/Face: Normocephalic, atraumatic. Cardiovascular: Regular rate and rhythm with a normal S1 and S2. No gallops, murmurs, or rubs. No pulse deficits. Respiratory: Respirations even and unlabored. No increased work of breathing. Talking in full sentences Abdomen/GI: Soft, non-tender. No distention Skin: Warm, dry with normal turgor. Normal color. MS/ Extremity: Pulses equal, no cyanosis. Neurovascular intact. Full, normal range of motion. Neuro: Awake and alert, GCS 15, oriented to person, place, time, and situation. Moves all extremities. Normal gait. Psych: Awake, alert, with orientation to person, place and time. Behavior, mood, and affect are within normal limits. 21:30 ENT: External ear(s): are unremarkable, Ear canal(s): are normal, TM's: bulging, bilaterally, erythema, that is moderate, bilaterally, Nose: is normal. Vital Signs: 19:13 BP 163 / 109; Pulse 69; Resp 18; Temp 98.4; Pulse Ox 100% on R/A; Weight 95.71 kg; hb Height 5 ft. 9 in. (175.26 cm); Pain 7/10; 19:13 Body Mass Index 31.16 (95.71 kg, 175.26 cm) hb MDM: 19:59 Patient medically screened. kb 21:27 Differential Diagnosis: Upper Respiratory Infection Otitis Media Pneumonia Other covid. kb Data reviewed: vital signs, nurses notes. Data interpreted: Pulse oximetry: on room air is 100 %. Interpretation: normal. Counseling: I had a detailed discussion with the patient and/or guardian regarding: the historical points, exam findings, and any diagnostic results supporting the discharge/admit diagnosis, radiology results, the need for outpatient follow up, a family practitioner, to return to the emergency department if symptoms worsen or persist or if there are any questions or concerns that arise at home. ED course: Diagnostic test considered but not performed: COVID and flu test considered but patient tested positive for COVID last week. History obtained from: Patient. 05/05 19:32 Order name: Chest Pa And Lat (2 Views) XRAY; Complete Time: 21:04 kb Administered Medications: No medications were administered Disposition: 23:32 Co-signature as Attending Physician, Robert Laura MD I agree with the assessment and rt plan of care. Disposition Summary: 05/05/22 21:22 Discharge Ordered Location: Home kb Condition: Stable kb Diagnosis - SARS-associated coronavirus as the cause of diseases classified elsewhere kb - Otitis media, unspecified, bilateral kb Followup: kb - With: Emergency Department - When: As needed - Reason: Worsening of condition Followup: kb - With: Private Physician - When: 2 - 3 days - Reason: Recheck today's complaints, Continuance of care, Re-evaluation by your physician Discharge Instructions: - Discharge Summary Sheet kb - Otitis Media, Adult, [id number] kb - COVID-19 kb - Viral Illness, Adult kb Forms: - Medication Reconciliation Form kb - Thank You Letter kb - Antibiotic Education kb - Prescription Opioid Use kb - Work release form vc1 Prescriptions: - Amoxicillin 875 mg Oral Tablet - take 1 tablet by ORAL route every 12 hours for 10 days; 20 tablet; Refills: 0, kb Product Selection Permitted Signatures: Dispatcher [employer] Carri Bautista FNP-C FNP-Robert Lindquist MD MD rt
[2022-05-05 22:04] VITALS: BP 163/109; TEMP 98.4; O2SAT 100
== END 2022-05-05 21:36 | disposition home or self-care (01) ==
LOC: ER 18:57
DX: U07.1 COVID-19 (principal); H66.93 Otitis media, unspecified, bilateral
CPT/HCPCS: 71046; 99283

== ENCOUNTER 2024-02-09 10:31 | Emergency (ER) | payer BC ==
--- OUTSIDE RECORDS SUMMARY | 2024-02-09 10:33 | XMS REPORT | Continuity of Care Document ---
Author Name Unknown Address [address] [place] [address] th[address] Address [address] [facility] [address] [place] [address] Care Team Providers Care Substation Electrician Supervisor Name Role Phone SPENCER Attending Clinician Unavailable SPENCER Admitting Clinician Unavailable Encounters Start Date/Time End Date/Time Encounter Type Admission Type Attending Clinicians Care Facility Care Department Encounter ID Source 2022-05-14 11:55:11 2022-05-14 11:55:11 Outpatient [facility] [id number] Alfredo Flores 2022-05-13 10:01:43 2022-05-13 10:01:43 Outpatient [facility] [id number] Alfredo Flores 2021-11-27 00:00:00 2021-11-27 00:00:00 Outpatient LYLA HOLT [facility] [id number] Program
[2024-02-09] MEDS ORDERED: ASPIRIN 81 MG CHEWABLE TABLET ONE (11:05)
[2024-02-09 12:20] LABS: Absolute Eosinophils 0.1 K/uL (0-0.5); Absolute Lymphocytes (CBC) 2.1 K/uL (0.7-4.9); Absolute Monocytes 0.5 K/uL (0.1-1.3); Absolute Neutrophil 2.7 K/uL (1.8-8.0); Basophils % 0.7 % (0-1.3); Eosinophils % 2.2 % (0-4.4); Hematocrit 27.4 % (39.6-49.0); Hemoglobin 9.1 g/dL (13.6-17.9); Lymphocytes % 39.2 % (15.3-44.8); MCH 32.7 pg (27.0-35.0); MCHC 33.3 g/dL (32.0-36.0); MPV 9.7 fL (7.6-11.3); Monocytes % 8.8 % (3.3-12.3); Neutrophils % 49.1 % (41.7-73.7); Nucleated Red Blood Cells % 0.2 % (0-0); Platelets 153 thou/uL (152-406); RBC Red Blood Cell Count 2.79 M/uL (4.33-5.43); Red Cell Distribution Width 17.8 % (12.1-15.2)
--- NOTE | 2024-02-09 12:27 | RAD REPORT ---
EXAMINATION: ONE VIEW CHEST XR CLINICAL INDICATION: CHEST PAIN TECHNIQUE: Frontal chest projection is submitted. Examination is limited by patient positioning and t echnique. COMPARISON: 05/05/2022 FINDINGS: The lungs are well inflated and clear. The heart is normal in size. No displaced fractures identified . IMPRESSION: No acute intrathoracic abnormalities.
[2024-02-09 12:40] LABS: Albumin 4.2 g/dL (3.4-5.0); Albumin/Globulin Ratio 1.4 (1.1-1.8); Anion Gap 8.7 mEq/L (5.0-15.0); Bilirubin Total 0.4 mg/dL (0.2-1.0); Magnesium 2.4 mg/dL (1.6-2.4); Potassium 3.7 mEq/L (3.5-5.1); Protein, Total 7.2 g/dL (6.4-8.2); Troponin High Sensitivity 5.2 pg/mL (<58.9)
--- NOTE | 2024-02-09 14:00 | RAD REPORT ---
EXAMINATION: CT Abdomen Pelvis W Contrast CLINICAL INDICATION: Male, 43 years old. ABD PAIN TECHNIQUE: CT abdomen and pelvis was performed, after the administration of IV contrast, [facility]. Axial, sagittal and coronal reconstructions were obtained. One or more of the following dose reduction techniques were used: Automated exposure control, adjustment of the mA and k V according to patient size, and iterative reconstruction. Unless otherwise specified, incidental findings do not require dedicated imaging follow-up. COMPARISON: No prior exam. FINDINGS: LOWER CHEST: The visualized lung bases are clear. LIVER: Normal in size and contour. No focal lesion. BILIARY SYSTEM: Gallbladder is decompressed limiting evaluation. No suspicious abnormalities. SPLEEN: Normal size. No focal lesion. PANCREAS: No mass, ductal dilation, or suzette-pancreatic fluid. ADRENALS: Normal; no mass. KIDNEYS: Normal size and contour. No hydronephrosis. URINARY BLADDER: Unremarkable. GASTROINTESTINAL TRACT: No evidence of free air, significant intra-abdominal free fluid, bowel obstru ction or abscess. Small umbilical hernia with narrow orifice measuring for a 6 mm, may contain trace fluid versus a short segment of small bowel. No proximal or distal small bowel dilation is appr eciated. APPENDIX: Appendix not visualized, but no inflammatory changes in region of appendix. LYMPH NODES: No lymphadenopathy. MUSCULOSKELETAL: No acute or suspicious osseous abnormality. ADDITIONAL FINDINGS: Small left inguinal hernia containing fat. IMPRESSION: Small umbilical hernia with narrow orifice, a fat-containing free fluid or a nondistended segment of small bowel. Please correlate clinically for evidence of reversibility. No other acute or concerning abnormalities seen in the abdomen or pelvis.
--- NOTE | 2024-02-09 15:22 | EDPHYS ---
Physician Documentation [facility] [place] Name: Abram Cuellar Age: 43 yrs Sex: Male : 1980 Arrival Date: 02/09/2024 Time: 10:31 Bed 7 Private MD: ED Physician Polo Lew HPI: 02/08 16:48 This 43 yrs old Male presents to ER via Ambulatory with complaints of Flu kb Symptoms, Chest Pain, Shortness Of Breath. 16:48 Pt is a 43 year old male who presents for chest pain and shortness of breath that kb started this morning, as well as, abd pain and vomiting that started 4 months ago. Also reports bodyaches for 4 months. Denies diarrhea, fever, cough, congestion . Historical: - Allergies: 10:50 No Known Allergies; tm6 - PMHx: 10:50 None; tm6 - PSHx: 10:50 Appendectomy; hernia repair; wrist SX-gangliosis; tm6 - Immunization history:: Client reports having NOT received the Covid vaccine. - Infectious Disease History:: Denies. - Social history:: Smoking status: Patient reports the use of cigarette tobacco products, denies chronic smoking, but will smoke occasionally, Patient/guardian denies using alcohol. ROS: 15:01 Constitutional: As per HPI kb Exam: 11:34 Constitutional: This is a well developed, well nourished patient who is awake, alert, kb and in no acute distress. Head/Face: Normocephalic, atraumatic. ENT: Moist Mucous membranes Cardiovascular: Regular rate Respiratory: Respirations even and unlabored. No increased work of breathing. Talking in full sentences Back: No spinal tenderness. No costovertebral tenderness. Full range of motion. Skin: Warm, dry with normal turgor. Normal color. MS/ Extremity: Pulses equal, no cyanosis. Neurovascular intact. Full, normal range of motion. Neuro: Awake and alert, GCS 15, oriented to person, place, time, and situation. Moves all extremities. Normal gait. 11:34 ECG was reviewed by the Attending Physician. 11:34 Abdomen/GI: Inspection: abdomen appears normal, Bowel sounds: normal, Palpation: soft, in all quadrants, nontender, in all quadrants, Hernia: noted in the umbilical area, Vital Signs: 10:47 Temp 98(O); tm6 10:47 BP 131 / 95; Pulse 56; Resp 18; Temp 98(O); Pulse Ox 100% ; MAP 104 mmHg; tm6 12:16 BP 133 / 100; Pulse 46; Resp 14 S; Pulse Ox 99% on R/A; aa5 12:41 BP 130 / 86; Pulse 47; Resp 10; Pulse Ox 100% ; bp 13:57 BP 127 / 86; Pulse 46; Resp 16; Pulse Ox 99% ; bp 15:45 BP 125 / 99; Pulse 49; Resp 16 S; Pulse Ox 99% on R/A; aa5 MDM: 10:41 Medical Screening Exam initiated kb 15:21 Data reviewed: vital signs, nurses notes. kb 16:48 Differential diagnosis: viral Infection, acute mi, gastritis, hernia, GERD. Counseling: john I had a detailed discussion with the patient and/or guardian regarding the historical points, exam findings, and any diagnostic results supporting the discharge/admit diagnosis, lab results, radiology results, the need for outpatient follow up, a family practitioner, a heel gouger, to return to the emergency department if symptoms worsen or persist or if there are any questions or concerns that arise at home. 02/08 10:51 Order name: CBC with Diff; Complete Time: 12:26 kb 02/08 10:51 Order name: Magnesium; Complete Time: 12:51 kb 02/08 10:51 Order name: NT PRO-BNP; Complete Time: 12:51 kb 02/08 10:51 Order name: Troponin HS; Complete Time: 12:51 kb 02/08 10:51 Order name: CMP; Complete Time: 12:51 kb 02/08 14:03 Order name: Troponin High Sensitivity; Complete Time: 15:01 kb 02/08 10:51 Order name: XRAY Chest (1 view); Complete Time: 12:51 kb 02/08 10:51 Order name: CT Abd/Pelvis - IV Contrast Only; Complete Time: 14:02 kb 02/08 10:51 Order name: Cardiac monitoring; Complete Time: 11:01 kb 02/08 10:51 Order name: EKG - Nurse/Tech; Complete Time: 11:01 kb 02/08 10:51 Order name: IV Saline Lock; Complete Time: 12:16 kb 02/08 10:51 Order name: Labs collected and sent; Complete Time: 11:11 kb 02/08 10:51 Order name: O2 Per Protocol; Complete Time: 11:03 kb 02/08 10:51 Order name: O2 Sat Monitoring; Complete Time: 11:03 kb 02/08 11:46 Order name: Labs - recollect needed: all tubes; Complete Time: 12:15 bc6 EC:34 Rate is 51 beats/min. Rhythm is regular. QRS Hartman is Normal. [place] interval is normal at kb 178 msec. QRS interval is normal at 114 msec. QT interval is normal at 411 msec. Administered Medications: 11:12 Drug: Aspirin PO Chewable Tablet 324 mg PO once; 81 mg tablets x 4 Route: PO; bp Disposition Summary: 02/09/24 15:22 Discharge Ordered Notes: Location: Home kb Condition: Stable kb Diagnosis - Abdominal pain, Generalized kb - Chest pain, unspecified kb Followup: kb - With: Emergency Department - When: As needed - Reason: Worsening of condition Followup: kb - With: Private Physician - When: 2 - 3 days - Reason: Recheck today's complaints, Continuance of care, Re-evaluation by your physician Discharge Instructions: - Discharge Summary Sheet kb - Abdominal Pain, Adult, [id number] kb - Nonspecific Chest Pain, Adult, [id number] kb - Umbilical Hernia, Adult kb Forms: - Medication Reconciliation Form kb - Antibiotic Education kb - Prescription Opioid Use kb - Patient Portal Instructions kb - Leadership Thank You Letter kb - Work release form aa5 Prescriptions: - Protonix 40 mg Oral Tablet - take 1 tablet ORAL route once daily; 30 tablet; Refills: 0, Product Selection kb Permitted Addendum: 02/10/2024 18:03 I was immediately available for consultation during this patient's visit. I did not e c2 personally see the patient or discuss the patient with the JUANITA. . Signatures: Dispatcher [employer] EDMS Carri Moore, LINEN AIDE-C LINEN AIDE-Ramiro David, RN RN bp Alicja Chaudhary 6 Polo Lew MD MD ec2 Babs Awad RN RN tm6 Corrections: (The following items were deleted from the chart) 02/08 10:52 10:51 Chest Single View+RAD.RAD.BRZ ordered. EDMS EDMS 10:52 10:52 Abdomen Pelvis W Con+CT.RAD.BRZ ordered. EDMS EDMS
--- NOTE | 2024-02-09 15:22 | ER ---
Nurse's Notes [facility] Name: Abram Cuellar Age: 43 yrs Sex: Male : 1980 Arrival Date: 02/09/2024 Time: 10:31 Bed 7 Private MD: Diagnosis: Abdominal pain, Generalized;Chest pain, unspecified Presentation: 02/08 10:47 Chief complaint: Patient states: my chest hurts and I'm having a problem breathing. In tm6 my abdomen it is hard to touch. Every time I try to eat I throw up. I have body aches. Chest pain and breathing started this morning. Body aches and abdomen started 4 months ago. Initial Sepsis Screen: Does the patient meet any 2 criteria? No. Patient's initial sepsis screen is negative. Does the patient have a suspected source of infection? No. Patient's initial sepsis screen is negative. Risk Assessment: Do you want to hurt yourself or someone else? Patient reports no desire to harm self or others. Onset of symptoms was February 09, 2024. 10:47 Method Of Arrival: Ambulatory tm6 10:50 Coronavirus screen: Vaccine status: Patient reports being unvaccinated. Ebola Screen: tm6 Patient negative for fever greater than or equal to 101.5 degrees Fahrenheit, and additional compatible Ebola Virus Disease symptoms Patient denies exposure to infectious person. Patient denies travel to an Ebola-affected area in the 21 days before illness onset. No symptoms or risks identified at this time. 10:50 Acuity: DUYEN 3 tm6 Triage Assessment: 10:47 General: Appears in no apparent distress. Behavior is calm, cooperative. Pain: tm6 Complains of pain in chest and umbilical area, general body aches. EENT: No signs and/or symptoms were reported regarding the EENT system. Neuro: Level of Consciousness is awake, alert, obeys commands, Oriented to person, place, time, situation. Cardiovascular: Reports chest pain, shortness of breath, Patient's skin is warm and dry. Respiratory: Reports shortness of breath Airway is patent Respiratory effort is even, unlabored, Respiratory pattern is regular, symmetrical. GI: Reports nausea, vomiting, umbilical pain. : No signs and/or symptoms were reported regarding the genitourinary system. Derm: No signs and/or symptoms reported regarding the dermatologic system. Musculoskeletal: Reports general body aches. Historical: - Allergies: 10:50 No Known Allergies; tm6 - PMHx: 10:50 None; tm6 - PSHx: 10:50 Appendectomy; hernia repair; wrist SX-gangliosis; tm6 - Immunization history:: Client reports having NOT received the Covid vaccine. - Infectious Disease History:: Denies. - Social history:: Smoking status: Patient reports the use of cigarette tobacco products, denies chronic smoking, but will smoke occasionally, Patient/guardian denies using alcohol. Screenin:41 [facility] ED Fall Risk Assessment (Adult) History of falling in the last 3 months, bp including since admission No falls in past 3 months (0 pts) Confusion or Disorientation No (0 pts) Intoxicated or Sedated No (0 pts) Impaired Gait No (0 pts) Mobility Assist Device Used No (0 pt) Altered Elimination No (0 pt) Score/Fall Risk Level 0 - 2 = Low Risk. Abuse screen: Denies threats or abuse. Denies injuries from another. Nutritional screening: No deficits noted. Tuberculosis screening: No symptoms or risk factors identified. Assessment: 12:16 Reassessment: Patient is alert, oriented x 3, equal unlabored respirations, skin aa5 warm/dry/pink. 12:41 Reassessment: Patient appears in no apparent distress at this time. Patient is alert, bp oriented x 3, equal unlabored respirations, skin warm/dry/pink. 13:57 Reassessment: Patient appears in no apparent distress at this time. Patient is alert, bp oriented x 3, equal unlabored respirations, skin warm/dry/pink. 15:45 Reassessment: Patient is alert, oriented x 3, equal unlabored respirations, skin aa5 warm/dry/pink. Vital Signs: 10:47 Temp 98(O); tm6 10:47 BP 131 / 95; Pulse 56; Resp 18; Temp 98(O); Pulse Ox 100% ; MAP 104 mmHg; tm6 12:16 BP 133 / 100; Pulse 46; Resp 14 S; Pulse Ox 99% on R/A; aa5 12:41 BP 130 / 86; Pulse 47; Resp 10; Pulse Ox 100% ; bp 13:57 BP 127 / 86; Pulse 46; Resp 16; Pulse Ox 99% ; bp 15:45 BP 125 / 99; Pulse 49; Resp 16 S; Pulse Ox 99% on R/A; aa5 ED Course: 10:34 Patient arrived in ED. im 10:41 Carri Moore FNP-C is [facility]. kb 10:41 Polo Lew MD is Attending Physician. kb 10:47 Arm band placed on right wrist. tm6 10:50 Triage completed. tm6 11:00 EKG done, by ED staff, reviewed by Carri VASQUEZ. tm6 11:01 Ramiro Archibald, RN is Primary Nurse. bp 11:35 XRAY Chest (1 view) In Process Unspecified. EDMS 12:11 Lab(s) recollected, by me, sent to lab. Inserted saline lock: 22 gauge in right aa5 antecubital area, using aseptic technique. Blood collected. Flushed with 10 mL NS. 12:42 Patient has correct armband on for positive identification. Provided Education on: N/A. bp Client placed on continuous cardiac and pulse oximetry monitoring. NIBP monitoring applied. patient monitor on. Pulse ox on. NIBP on. 13:18 CT Abd/Pelvis - IV Contrast Only In Process Unspecified. EDMS 15:55 No provider procedures requiring assistance completed. IV discontinued, intact, aa5 bleeding controlled, No redness/swelling at site. Pressure dressing applied. Patient maintains SpO2 saturation greater than 95% on room air. Administered Medications: 11:12 Drug: Aspirin PO Chewable Tablet 324 mg PO once; 81 mg tablets x 4 Route: PO; bp Medication: 15:55 VIS not applicable for this client. aa5 Outcome: 15:22 Discharge ordered by . kb 15:55 Discharged to home ambulatory, aa5 15:55 Condition: stable 15:55 Discharge instructions given to patient, Instructed on discharge instructions, follow up and referral plans. medication usage, Demonstrated understanding of instructions, follow-up care, medications, Prescriptions given X 1, 16:01 Patient left the ED. aa5 Signatures: Dispatcher [employer] EDMS Carri Moore FNP-C FNP-Ckb Calderon, Audri, RN RN aa5 Ramiro Archibald, RN RN Taniya Marc Tawney RN RN tm6
[2024-02-09 17:20] VITALS: TEMP 98
[2024-02-09 17:27] VITALS: O2SAT 99
[2024-02-09 17:28] VITALS: BP 125/99
== END 2024-02-09 16:01 | disposition home or self-care (01) ==
LOC: ER 10:31
DX: R07.9 Chest pain, unspecified (principal); R10.84 Generalized abdominal pain; F17.210 Nicotine dependence, cigarettes, uncomplicated
CPT/HCPCS: 93005; 85025; 36415; 83735; 84484 ×2; 80053; 83880; 74177; 71045; Q9967

== ENCOUNTER 2024-04-03 21:38 | Emergency (ER) | payer BC ==
--- OUTSIDE RECORDS SUMMARY | 2024-04-03 21:41 | XMS REPORT | Continuity of Care Document ---
Author Name Unknown Address [address] [place] [address] [address] Address [address] [facility] [address] [place] [address] Care Team Providers Care Chief Chemist Name Role Phone SPENCER Attending Clinician Unavailable SPENCER Admitting Clinician Unavailable Encounters Start Date/Time End Date/Time Encounter Type Admission Type Attending Clinicians Care Facility Care Department Encounter ID Source 2022-05-14 11:55:11 2022-05-14 11:55:11 Outpatient [facility] [id number] Alfredo Flores 2022-05-13 10:01:43 2022-05-13 10:01:43 Outpatient [facility] [id number] Alfredo Flores 2021-11-27 00:00:00 2021-11-27 00:00:00 Outpatient LYLA HOL[facility] [id number]
[2024-04-03] MEDS ORDERED: FLUORESCEIN SODIUM 1 MG/WRAP ONE (22:16)
[2024-04-03] MEDS ORDERED: TETRACAINE HCL 0.5% 4ML OPTH ONE (22:16)
--- NOTE | 2024-04-03 22:31 | EDPHYS ---
Physician Documentation [facility] Name: Abram Cuellar Age: 43 yrs Sex: Male : 1980 Arrival Date: 04/03/2024 Time: 21:38 Bed 20 Private MD: ED Physician Polo Lew HPI: 04/03 22:31 This 43 yrs old Male presents to ER via Ambulatory with complaints of Foreign dr5 Body In Eye. 22:31 The patient is experiencing blurred vision, pain, redness, The patient sustained. dr5 Onset: The symptoms/episode began/occurred this morning. Patient wears glasses, wears soft contacts. Patient is a 43-year-old male presenting with foreign body sensation to right eye. Patient slept in contacts last night. Patient woke up this morning with pain in his right eye. Patient reports photophobia. Patient denies floaters.. Historical: - Allergies: 21:50 No Known Allergies; me1 - PMHx: 21:50 None; me1 - PSHx: 21:50 Appendectomy; hernia repair; wrist SX-gangliosis; back surgery (Unknown); me1 - Immunization history:: Adult Immunizations up to date. - Infectious Disease History:: Denies. - Social history:: Smoking status: Patient/guardian denies using tobacco, but has a distant history of tobacco abuse. ROS: 22:31 Constitutional: as per hpi dr5 Exam: 22:31 Visual Acuity: I have reviewed the nursing documentation. Visual acuity is within dr5 normal limits. 22:31 Constitutional: This is a well developed, well nourished patient who is awake, alert, and in no acute distress. Head/Face: Normocephalic, atraumatic. 22:31 Neck: Trachea midline, no thyromegaly or masses palpated, and no cervical lymphadenopathy. Supple, full range of motion without nuchal rigidity, or vertebral point tenderness. No Meningismus. Cardiovascular: Regular rate and rhythm with a normal S1 and S2. Normal PMI, no JVD. No pulse deficits. Respiratory: Lungs have equal breath sounds bilaterally, clear to auscultation. No rales, rhonchi or wheezes noted. No increased work of breathing, no retractions or nasal flaring. Abdomen/GI: Soft, non-tender, non-distended Skin: Warm, dry with normal turgor. Normal color with no rashes, no lesions, and no evidence of cellulitis. Neuro: Awake and alert, GCS 15, oriented to person, place, time, and situation. Cranial nerves II-XII grossly intact. Motor strength 5/5 in all extremities. Sensory grossly intact. Cerebellar exam normal. Normal gait. 22:31 Eyes: Periorbital structures: appear normal, Pupils: no acute changes, equal, round, and reactive to light and accomodation, Extraocular movements: intact throughout, Conjunctiva: injected, in the right eye, Corneas: abrasion, that is small, on the right, at 9 o'clock, Sclera: no appreciated abnormality, Vital Signs: 21:48 BP 133 / 82; Pulse 56; Resp 16; Temp 98.1; Pulse Ox 100% ; Weight 101.6 kg; Height 5 me1 ft. 9 in. ; Pain 9/10; 22:33 BP 118 / 77; Pulse 53; Resp 17; Temp 98.6; Pulse Ox 96% ; Pain 0/10; jj7 21:48 Body Mass Index 33.08 (101.60 kg, 175.26 cm) me1 21:48 Pain Scale: Adult me1 22:33 Pain Scale: Adult jj7 Procedures: 22:31 Eye Exam:. dr5 22:34 Eye Exam: Acuity test: 20/20 in Both, Right, and Left after Tetracaine. dr5 MDM: 21:49 Medical Screening Exam initiated dr5 22:34 Differential diagnosis: Corneal abrasion of Corneal ulcer of Foreign body in. Data dr5 reviewed: vital signs, nurses notes. Consideration of Admission/Observation. I considered the following discharge prescriptions or medication management in the emergency department Medications were administered in the Emergency Department. See MAR. Care significantly affected by the following Social Determinants of Health: Poor access to healthcare and/or lack of insurance, Poor access to transportation. Counseling: I had a detailed discussion with the patient and/or guardian regarding the historical points, exam findings, and any diagnostic results supporting the discharge/admit diagnosis, the need for outpatient follow up, for definitive care, an opthalmologist, a family practitioner, to return to the emergency department if symptoms worsen or persist or if there are any questions or concerns that arise at home. Medication response: Tetracaine. ED course: Will give patient Ocuflox considering patient wears contacts. Recommended patient follow-up with ophthalmology in 1 week if pain does not improve. Also recommended hot compresses to help with swelling and pain. All questions answered.. Administered Medications: 22:25 Drug: Tetracaine Ophthalmic Drops 0.5 % 1 drops Ophthalmic once {Note: ADMIN BY EMMA vega TAX COMPLIANCE REPRESENTATIVE.} Route: Ophthalmic; Site: right eye; 22:39 Follow up: Response: Marked relief of symptoms j7 22:25 Drug: Fluorescein Ophthalmic Strip 1 strip Ophthalmic once {Note: ADMIN BY EMMA DURHAMP.} jj7 Route: Ophthalmic; Site: right eye; 22:39 Follow up: Response: No adverse reaction jj7 Disposition Summary: 04/03/24 22:31 Discharge Ordered Notes: Location: Home dr5 Condition: Stable dr5 Diagnosis - Injury of conjunctiva and corneal abrasion without foreign body, right eye dr5 Followup: dr5 - With: Emergency Department - When: As needed - Reason: Worsening of condition Followup: dr5 - With: Private Physician - When: 1 - 2 days - Reason: Recheck today's complaints, Continuance of care, Re-evaluation by your physician Discharge Instructions: - Discharge Summary Sheet dr5 - Corneal Abrasion dr5 Forms: - Medication Reconciliation Form dr5 - Antibiotic Education dr5 - Patient Portal Instructions dr5 - Leadership Thank You Letter dr5 Prescriptions: - Ocuflox 0.3 % Ophthalmic drops - instill 2 drops OPHTHALMIC route every 6 hours for 7 days; 15 milliliter; dr5 Refills: 0, Product Selection Permitted Addendum: 04/07/2024 09:44 I was immediately available for consultation during this patient's visit. I did not e c2 personally see the patient or discuss the patient with the JUANITA. . Signatures: Renée Vinson RN RN jj7 Noemy Acosta RN RN me1 Polo Lew MD MD ec2 Emma Glasgow, FRANCISCA-C TAX COMPLIANCE REPRESENTATIVE-Cdr5
--- NOTE | 2024-04-03 22:31 | ER ---
Nurse's Notes [facility] Name: Abram Cuellar Age: 43 yrs Sex: Male : 1980 Arrival Date: 04/03/2024 Time: 21:38 Bed 20 Private MD: Diagnosis: Injury of conjunctiva and corneal abrasion without foreign body, right eye Presentation: 04/03 21:48 Chief complaint: Patient states: feels like he has something in his right eye that me1 scratches when he looks down. Started at 09:00 today. Reports sensitivity to light. Coronavirus screen: Vaccine status: Patient reports being unvaccinated. Ebola Screen: No symptoms or risks identified at this time. Initial Sepsis Screen: Does the patient meet any 2 criteria? No. Patient's initial sepsis screen is negative. Does the patient have a suspected source of infection? No. Patient's initial sepsis screen is negative. Risk Assessment: Do you want to hurt yourself or someone else? Patient reports no desire to harm self or others. Onset of symptoms was April 03, 2024 at 09:00. 21:48 Method Of Arrival: Ambulatory ct1 21:48 Acuity: DUYEN 4 me1 Historical: - Allergies: 21:50 No Known Allergies; me1 - PMHx: 21:50 None; me1 - PSHx: 21:50 Appendectomy; hernia repair; wrist SX-gangliosis; back surgery (Unknown); me1 - Immunization history:: Adult Immunizations up to date. - Infectious Disease History:: Denies. - Social history:: Smoking status: Patient/guardian denies using tobacco, but has a distant history of tobacco abuse. Screenin:54 [facility] ED Fall Risk Assessment (Adult) History of falling in the last 3 months, jj7 including since admission No falls in past 3 months (0 pts) Confusion or Disorientation No (0 pts) Intoxicated or Sedated No (0 pts) Impaired Gait No (0 pts) Mobility Assist Device Used No (0 pt) Altered Elimination No (0 pt) Score/Fall Risk Level 0 - 2 = Low Risk Oriented to surroundings, Maintained a safe environment, Educated pt \T\ family on fall prevention, incl call for assistance when getting out of bed, Assessed \T\ reinforced patient's understanding of fall precautions. Abuse screen: Denies threats or abuse. Nutritional screening: No deficits noted. Tuberculosis screening: No symptoms or risk factors identified. Assessment: 21:51 EENT: Reports pain in right eye photophobia. jj7 21:51 General: Appears in no apparent distress. uncomfortable, Behavior is calm, cooperative, jj7 appropriate for age. Pain: Complains of pain in right eye. Vital Signs: 21:48 BP 133 / 82; Pulse 56; Resp 16; Temp 98.1; Pulse Ox 100% ; Weight 101.6 kg; Height 5 me1 ft. 9 in. ; Pain 9/10; 22:33 BP 118 / 77; Pulse 53; Resp 17; Temp 98.6; Pulse Ox 96% ; Pain 0/10; jj7 21:48 Body Mass Index 33.08 (101.60 kg, 175.26 cm) me1 21:48 Pain Scale: Adult me1 22:33 Pain Scale: Adult [facility] ED Course: 21:41 Patient arrived in ED. gm2 21:44 Emma Glasgow FNP-C is [facility]. dr5 21:44 Polo Lew MD is Attending Physician. dr5 21:50 Triage completed. me1 21:50 Arm band placed on Patient placed in an exam room. me1 21:51 Renée Vinson RN is Primary Nurse. jj7 21:54 Patient has correct armband on for positive identification. Placed in gown. Bed in low jj7 position. Call light in reach. Provided Education on: USE OF CALL POP. Client placed on continuous cardiac and pulse oximetry monitoring. NIBP monitoring applied. 22:25 Assist provider with eye exam of right eye. using fluorescein stain, Performed by silvia VASQUEZ Patient tolerated well. 22:39 Patient did not have IV access during this emergency room visit. [email or web address] Administered Medications: 22:25 Drug: Tetracaine Ophthalmic Drops 0.5 % 1 drops Ophthalmic once {Note: ADMIN BY EMMA ESPINOSA.} Route: Ophthalmic; Site: right eye; 22:39 Follow up: Response: Marked relief of symptoms marlenJayro 22:25 Drug: Fluorescein Ophthalmic Strip 1 strip Ophthalmic once {Note: ADMIN BY EMMA CATHERINE} silvia Route: Ophthalmic; Site: right eye; 22:39 Follow up: Response: No adverse reaction jj7 Medication: 21:54 VIS not applicable for this client. j Outcome: 22:31 Discharge ordered by . jasmine 22:38 Discharged to home ambulatory, jj7 22:38 Condition: improved 22:38 Discharge instructions given to patient, Instructed on discharge instructions, follow up and referral plans. medication usage, Demonstrated understanding of instructions, follow-up care, medications, Prescriptions given X 1, 22:39 Patient left the ED. j7 Signatures: Renée Vinson RN RN jj7 Noemy Acosta RN RN me1 Jaci Paul gm2 Emma Glasgow, LAWYERS-C LAWYERS-Cdr5 Corrections: (The following items were deleted from the chart) 21:54 21:51 EENT: Reports silvia jsrinivasan 22:38 22:33 BP 118 / 77; Pulse 53bpm; Resp 17bpm; Pulse Ox 96%; jj7 j
[2024-04-04 04:58] VITALS: BP 118/77; TEMP 98.6; O2SAT 96
== END 2024-04-03 22:39 | disposition home or self-care (01) ==
LOC: ER 21:38
DX: S05.01XA Injury of conjunctiva and corneal abrasion without foreign body, right eye, initial encounter (principal)
CPT/HCPCS: 99284

== ENCOUNTER 2024-04-11 03:33 | Emergency (ER) | payer BC ==
[2024-04-11] MEDS ORDERED: TETRACAINE HCL 0.5% 4ML OPTH ONE (03:34)
[2024-04-11] MEDS ORDERED: FLUORESCEIN SODIUM 1 MG/WRAP ONE (03:35)
--- OUTSIDE RECORDS SUMMARY | 2024-04-11 03:35 | XMS REPORT | Continuity of Care Document ---
Author Name Unknown Address [address] [place] [address] [address] thconnect Address 1200 [facility] 1 495 [place] [address] Care Team Providers Care Mechanical Drawing Teacher Name Role Phone SPENCER Attending Clinician Unavailable SPENCER Admitting Clinician Unavailable Encounters Start Date/Time End Date/Time Encounter Type Admission Type Attending Clinicians Care Facility Care Department Encounter ID Source 2022-05-14 11:55:11 2022-05-14 11:55:11 Outpatient [facility] [id number] Alfredo Flores 2022-05-13 10:01:43 2022-05-13 10:01:43 Outpatient [facility] 0116 Alfredo Flores 2021-11-27 00:00:00 2021-11-27 00:00:00 Outpatient [facility]YLA HOLT [facility] [id number] [facility]
[2024-04-11] MEDS ORDERED: IBUPROFEN 400 MG TAB ONE (04:23)
[2024-04-11] MEDS ORDERED: GENTAMICIN 0.3% OPTH DROP 5ML ONE (04:23)
--- NOTE | 2024-04-11 04:24 | EDPHYS ---
Physician Documentation [facility] Name: Abram Cuellar Age: 43 yrs Sex: Male : 1980 Arrival Date: 04/11/2024 Time: 03:33 Bed 5 Private MD: ED Physician Angel Kirkpatrick HPI: 04/11 03:45 This 43 yrs old Male presents to ER via Ambulatory with complaints of Foreign cp Body In Eye - Left. 03:45 The patient is experiencing foreign body sensation, pain, redness, to the left eye, cp caused by contact lens. 03:45 Onset: The symptoms/episode began/occurred this morning. cp 03:45 Duration: the symptoms are continuous. Patient wears glasses, wears soft contacts. cp Historical: - Allergies: 03:43 No Known Allergies; lg3 - Home Meds: 03:43 None [Active]; lg3 - PMHx: 03:43 None; lg3 - PSHx: 03:43 Appendectomy; back surgery; hernia repair; wrist SX-gangliosis; lg3 - Immunization history:: Adult Immunizations up to date. - Infectious Disease History:: Denies. - Social history:: Smoking status: Patient reports the use of cigarette tobacco products, denies chronic smoking, but will smoke occasionally, Patient/guardian denies using alcohol, street drugs. ROS: 03:50 Eyes: Positive for foreign body sensation, pain, redness, of the left eye, cp 03:50 Constitutional: Negative for fever, cp 03:50 ENT: Negative for drainage from ear(s), ear pain, sore throat, difficulty swallowing, difficulty handling secretions, 03:50 Skin: Negative for cellulitis, rash, 03:50 All other systems are negative, cp Exam: 04:03 Visual Acuity: I have reviewed the nursing documentation. cp 04:15 Head/Face: Normocephalic, atraumatic. cp 04:15 Constitutional: The patient appears in no acute distress, alert, awake, non-toxic, well developed, well nourished, uncomfortable, 04:15 Eyes: Periorbital structures: appear normal, Pupils: equal, round, and reactive to light and accomodation, Extraocular movements: intact throughout, Conjunctiva: injected, in the left eye, tearing noted, in left eye, Corneas: abrasion, that is small, at 12 o'clock, foreign body, is not appreciated, a fluorescein strip employed to appreciate the findings, Lids and lashes: appear normal, bilaterally, 04:15 ENT: External ear(s): are unremarkable, Nose: is normal, Mouth: Lips: moist, Oral mucosa: moist, Posterior pharynx: Airway: no evidence of obstruction, patent, 04:15 Chest/axilla: Inspection: normal, 04:15 Cardiovascular: Rate: normal, 04:15 Skin: cellulitis, is not appreciated, no rash present. Vital Signs: 03:42 BP 127 / 80; Pulse 71; Resp 17 S; Temp 97.6(O); Pulse Ox 100% on R/A; Weight 154.22 kg lg3 (R); Height 5 ft. 9 in. (R); 04:34 BP 137 / 97; Pulse 67; Resp 18; Pulse Ox 100% ; cp4 03:42 Body Mass Index 50.21 (154.22 kg, 175.26 cm) lg3 Visual Acuity: 04:00 Left Eye Visual acuity 20/30, Normal, React To Light; Right Eye Visual acuity 20/40, cp4 Normal, React To Light; Both Eyes Visual acuity 20/30; With Lenses; MDM: 03:43 Medical Screening Exam initiated cp 04:22 Data reviewed: vital signs, nurses notes, and as a result, I will discharge patient. cp 04/11 03:44 Order name: Eye Tray; Complete Time: 03:45 cp 04/11 03:44 Order name: Fluoresene Opth strip; Complete Time: 03:45 cp 04/11 03:44 Order name: Visual Acuity; Complete Time: 04:02 cp Administered Medications: 04:26 Drug: Ibuprofen PO 800 mg PO once Route: PO; cp4 04:34 Follow up: Response: No adverse reaction cp4 04:26 Drug: Gentamicin Ophthalmic Drops 0.3 % 1 drops Ophthalmic once; install drops left eye cp4 every 4 hours while awake for 7 days Route: Ophthalmic; Site: left eye; 04:34 Follow up: Response: No adverse reaction cp4 04:34 Drug: HYDROcodone-acetaminophen PO 5 mg-325 mg 1 tabs PO once Route: PO; cp4 04:34 Follow up: Response: No adverse reaction cp4 04:36 Drug: Tetracaine Ophthalmic Drops 0.5 % 1 drops Ophthalmic once {Note: Administered by cp4 provider.} Route: Ophthalmic; Site: left eye; 04:36 Follow up: Response: No adverse reaction cp4 Disposition: 04/12 01:04 Chart complete. cp Disposition Summary: 04/11/24 04:24 Discharge Ordered Notes: Location: Home cp Problem: new cp Symptoms: have improved cp Condition: Stable cp Diagnosis - Injury of conjunctiva and corneal abrasion without foreign body, left eye cp Followup: cp - With: Keyla Leigh MD - When: 2 - 3 days - Reason: Recheck today's complaints Discharge Instructions: - Discharge Summary Sheet cp - Corneal Abrasion cp Forms: - Medication Reconciliation Form cp - Antibiotic Education cp - Prescription Opioid Use cp - Patient Portal Instructions cp - Leadership Thank You Letter cp Prescriptions: - Anaprox DS 550 mg Oral Tablet - take 1 tablet ORAL route every 12 hours As needed; 20 tablet; Refills: 0, cp Product Selection Permitted - Gentamicin 0.3 % Ophthalmic drops - instill 1 drop OPHTHALMIC route every 4 hours for 7 days; 1 unit; Refills: 0, cp Product Selection Permitted Signatures: Angel Hilliard PA PA cp Able, Lacie, RN RN lg3 Mary Ann Jaime cp4
--- NOTE | 2024-04-11 04:24 | ER ---
Nurse's Notes [facility] Name: Abram Cuellar Age: 43 yrs Sex: Male : 1980 Arrival Date: 04/11/2024 Time: 03:33 Bed 5 Private MD: Diagnosis: Injury of conjunctiva and corneal abrasion without foreign body, left eye Presentation: 04/11 03:42 Chief complaint: Patient states: i feel like there's something in my left eye. denies lg3 injury. Coronavirus screen: Client denies travel out of the [place] in the last 14 days. At this time, the client does not indicate any symptoms associated with coronavirus-19. Ebola Screen: No symptoms or risks identified at this time. Initial Sepsis Screen: Does the patient meet any 2 criteria? No. Patient's initial sepsis screen is negative. Does the patient have a suspected source of infection? No. Patient's initial sepsis screen is negative. Risk Assessment: Do you want to hurt yourself or someone else? Patient reports no desire to harm self or others. Onset of symptoms was April 11, 2024. 03:42 Method Of Arrival: Ambulatory lg3 03:42 Acuity: DUYEN 4 lg3 Triage Assessment: 03:43 General: Appears in no apparent distress. uncomfortable, Behavior is calm, cooperative. lg3 Pain: Complains of pain in left eye. EENT: Reports pain in left eye photophobia in left eye. Neuro: No deficits noted. Perez Agitation-Sedation Scale (RASS): 0 - Alert and Calm Level of Consciousness is awake, alert, obeys commands, Oriented to person, place, time, situation. Cardiovascular: No deficits noted. Denies chest pain, shortness of breath, Capillary refill < 3 seconds Clubbing of nail beds is absent JVD is absent Patient's skin is warm and dry. Respiratory: No deficits noted. Airway is patent Respiratory effort is even, unlabored, Respiratory pattern is regular, symmetrical. GI: No deficits noted. No signs and/or symptoms were reported involving the gastrointestinal system. : No signs and/or symptoms were reported regarding the genitourinary system. Derm: No signs and/or symptoms reported regarding the dermatologic system. Skin is intact, is healthy with good turgor, Skin is dry, Skin is normal, Skin temperature is warm. Musculoskeletal: No deficits noted. No signs and/or symptoms reported regarding the musculoskeletal system. Circulation, motion, and sensation intact. Range of motion: intact in all extremities. Historical: - Allergies: 03:43 No Known Allergies; lg3 - Home Meds: 03:43 None [Active]; lg3 - PMHx: 03:43 None; lg3 - PSHx: 03:43 Appendectomy; back surgery; hernia repair; wrist SX-gangliosis; lg3 - Immunization history:: Adult Immunizations up to date. - Infectious Disease History:: Denies. - Social history:: Smoking status: Patient reports the use of cigarette tobacco products, denies chronic smoking, but will smoke occasionally, Patient/guardian denies using alcohol, street drugs. Screenin:46 [facility] ED Fall Risk Assessment (Adult) History of falling in the last 3 months, cp4 including since admission No falls in past 3 months (0 pts) Confusion or Disorientation No (0 pts) Intoxicated or Sedated No (0 pts) Impaired Gait No (0 pts) Mobility Assist Device Used No (0 pt) Altered Elimination No (0 pt) Score/Fall Risk Level 0 - 2 = Low Risk Oriented to surroundings, Maintained a safe environment, Assessed \T\ reinforced patient's understanding of fall precautions, Hourly rounding (assess needs \T\ fall precautionary measures) done. Abuse screen: Denies threats or abuse. Nutritional screening: No deficits noted. Tuberculosis screening: No symptoms or risk factors identified. Assessment: 03:45 General: Appears in no apparent distress. uncomfortable, Behavior is calm, cooperative, cp4 appropriate for age. Pain: Denies pain. Neuro: 03:46 Neuro: Level of Consciousness is awake, alert, obeys commands, Oriented to person, cp4 place, time, situation. Cardiovascular: Patient's skin is warm and dry. Respiratory: Airway is patent Respiratory effort is even, unlabored. GI: No signs and/or symptoms were reported involving the gastrointestinal system. : No signs and/or symptoms were reported regarding the genitourinary system. EENT: Reports something in left eye.. Derm: No signs and/or symptoms reported regarding the dermatologic system. Musculoskeletal: No signs and/or symptoms reported regarding the musculoskeletal system. Vital Signs: 03:42 BP 127 / 80; Pulse 71; Resp 17 S; Temp 97.6(O); Pulse Ox 100% on R/A; Weight 154.22 kg lg3 (R); Height 5 ft. 9 in. (R); 04:34 BP 137 / 97; Pulse 67; Resp 18; Pulse Ox 100% ; cp4 03:42 Body Mass Index 50.21 (154.22 kg, 175.26 cm) lg3 Visual Acuity: 04:00 Left Eye Visual acuity 20/30, Normal, React To Light; Right Eye Visual acuity 20/40, cp4 Normal, React To Light; Both Eyes Visual acuity 20/30; With Lenses; ED Course: 03:34 Patient arrived in ED. ra3 03:42 Mary Ann Jaime is Primary Nurse. cp4 03:43 Triage completed. lg3 03:43 Angel Hilliard PA is PHCP. cp 03:43 Angel Kirkpatrick MD is Attending Physician. cp 03:43 Arm band placed on right wrist. lg3 03:46 Bed in low position. Call light in reach. Side rails up X 1. cp4 03:46 Assist provider with eye exam of both eyes. using fluorescein stain, Performed by Angel cpAllen JAMES Patient tolerated well. 03:46 Patient did not have IV access during this emergency room visit. cp4 04:23 Keyla Leigh MD is Referral Physician. cp 04:35 Provided Education on: corneal abrasion. cp4 Administered Medications: 04:26 Drug: Ibuprofen PO 800 mg PO once Route: PO; cp4 04:34 Follow up: Response: No adverse reaction cp4 04:26 Drug: Gentamicin Ophthalmic Drops 0.3 % 1 drops Ophthalmic once; install drops left eye cp4 every 4 hours while awake for 7 days Route: Ophthalmic; Site: left eye; 04:34 Follow up: Response: No adverse reaction cp4 04:34 Drug: HYDROcodone-acetaminophen PO 5 mg-325 mg 1 tabs PO once Route: PO; cp4 04:34 Follow up: Response: No adverse reaction cp4 04:36 Drug: Tetracaine Ophthalmic Drops 0.5 % 1 drops Ophthalmic once {Note: Administered by cp4 provider.} Route: Ophthalmic; Site: left eye; 04:36 Follow up: Response: No adverse reaction cp4 Medication: 03:46 VIS not applicable for this client. cp4 Outcome: 04:24 Discharge ordered by . cp 04:35 Discharged to home ambulatory, cp4 04:35 Condition: stable 04:35 Discharge instructions given to patient, family, Instructed on discharge instructions, follow up and referral plans. medication usage, Demonstrated understanding of instructions, follow-up care, medications, Prescriptions given X 2, 04:36 Patient left the ED. cp4 Signatures: Angel Hilliard PA PA cp Able, Lacie, RN RN lg3 Mary Ann Jaime cp4 Vicky Lowery ra3
[2024-04-11] MEDS ORDERED: HYDROCODONE/APAP 5/325 MG TAB ONE (04:31)
[2024-04-11 04:41] VITALS: TEMP 97.6; O2SAT 100
[2024-04-11 04:42] VITALS: BP 137/97
== END 2024-04-11 04:36 | disposition home or self-care (01) ==
LOC: ER 03:33
DX: S05.02XA Injury of conjunctiva and corneal abrasion without foreign body, left eye, initial encounter (principal)
CPT/HCPCS: 99284